=== PATIENT | male | born 1970 | race Caucasian/White ===

== ENCOUNTER 2016-08-24 09:56 | Emergency (ER) | payer OTHER ==
[2016-08-24 10:06] VITALS: BP 131/74; PULSE 88; TEMP 97.4; BMI 22.3
--- NOTE | 2016-08-24 10:27 | PDOC ---
History of Present Illness - General Chief Complaint: Ear Problem Stated Complaint: EAR AND MOUTH PAIN Time Seen by Provider: 08/24/16 10:08 History Source: Patient Exam Limitations: No Limitations - History of Present Illness Initial Comments: CHIEF COMPLAINT: 45 y/o afebrile male with no significant pMH c/o 5 days of sore throat and ear pain. HISTORY OF PRESENT ILLNESS: The patient states his symptoms started as a sore throat with painful swallowing. He states for the past 2 days he has had a right sided earache. He states the sore throat has improved. He denies f/c, n/ v/d, cough, runny nose, change in voice, headache, and all other symptoms. He hasn't taken any medication for his symptoms. Vital signs on arrival are within normal limits. REVIEW OF SYSTEMS: GENERAL/CONSTITUTIONAL: No fever/chills. No weakness. No weight change. HEAD, EYES, EARS, NOSE AND THROAT: No change in vision. +right earache. +sore throat. MUSCULOSKELETAL: No joint or muscle swelling or pain. No neck or back pain. SKIN: No rash or easy bruising. NEUROLOGIC: No headache, vertigo, loss of consciousness, or loss of sensation. PHYSICAL EXAM: GENERAL: The patient is awake, alert, and fully oriented, in no acute distress. He is very well appearing and ambulatory. HEENT: head with no signs of trauma. No mastoid TTP b/l. PERRLA. EOMs intact. No tonsilar erythema or edema. No tooth pain. No anterior lymphadenopathy. Pain elicited with otoscope exam of right ear with minimal swelling of canal and moderate amount of cerumen. TMs normal b/l. EXTREMITIES: Normal range of motion, no edema. NEUROLOGICAL: Normal speech, normal gait. PSYCH: Normal mood, normal affect. SKIN: Warm, Dry, normal turgor, no rashes or lesions noted. Past History - Past Medical History Allergies/Adverse Reactions: Allergies Allergy/AdvReac Type Severity Reaction Status Date / Time No Known Allergies Allergy Verified 08/24/16 09:58 Home Medications: Ambulatory Orders Neomycin/Polymyxin B Sulf/Hc [Npifdmek-Rmoorlfbu-Vm Ear Susp] 4 drop AD TID #1 bottle 08/24/16 Other medical history: none - Psycho/Social/Smoking Cessation Hx Anxiety: No Suicidal Ideation: No Smoking History: Never smoked Have you smoked in the past 12 months: No Information on smoking cessation initiated: No Hx Alcohol Use: No Drug/Substance Use Hx: No Substance Use Type: None *Physical Exam - Vital Signs Last Vital Signs Temp Pulse Resp BP Pulse Ox 97.4 F L 88 18 131/74 100 08/24/16 09:59 08/24/16 09:59 08/24/16 09:59 08/24/16 09:59 08/24/16 09:59 Medical Decision Making - Medical Decision Making A/P: 45 y/o afebrile male with sore throat and possible otitis externa. Plan is to discharge to home with instructions to take OTC Ibuprofen for pain every 6 hours and use Rx ear drops as prescribed. Instructed the patient to f/u with his doctor within 1 week and return to the ER with any worsening or concerning symptoms. The patient verbalizes understanding of all instructions, has no further questions and is awaiting discharge. *DC/Admit/Observation/Transfer Diagnosis at time of Disposition: Earache on right, Sore throat Otitis externa Qualifiers: Otitis externa type: unspecified type Laterality: right Chronicity: acute Qualified Code(s): H60.501 - Unspecified acute noninfective otitis externa, right ear - Discharge Dispostion Disposition: HOME Condition at time of disposition: Good - Prescriptions Prescriptions: Neomycin/Polymyxin B Sulf/Hc [Kykpzdsd-Kbqtcchta-Ha Ear Susp] 4 drop AD TID #1 bottle - Patient Instructions Printed Discharge Instructions: DI for Otitis Externa, Sore Throat Additional Instructions: Discharge Instructions: -Take 600mg of over the counter Ibuprofen with food for pain every 6 hours -Use ear drops as prescribed -Call your doctor and make an appointment for 1 week from today -Return to the ER immediately with any worsening or concerning symptoms
[2016-08-24] MEDS ORDERED: IBUPROFEN 600 MG TABLET (FP) PO ONE ×2 (10:29→10:32)
== END 2016-08-24 10:35 | disposition home or self-care (01) ==
LOC: JERFT 09:56
DX: H60.501 Unspecified acute noninfective otitis externa, right ear (principal)
CPT/HCPCS: 99281-25

== ENCOUNTER 2016-10-18 18:27 | Emergency (ER) | payer OTHER ==
[2016-10-18 18:31] VITALS: BP 124/68; PULSE 75; TEMP 98; BMI 20.9
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
[2016-10-18] MEDS ORDERED: IBUPROFEN 400 MG TABLET (FP) PO ONE ×2 (18:55→18:57)
== END 2016-10-18 19:04 | disposition home or self-care (01) ==
LOC: JERFT 18:27
DX: M54.2 Cervicalgia (principal); M54.6 Pain in thoracic spine; V49.49XA Driver injured in collision with other motor vehicles in traffic accident, initial encounter; Y92.488 Other paved roadways as the place of occurrence of the external cause; Y93.89 Activity, other specified
CPT/HCPCS: 99281-25

== ENCOUNTER 2018-12-25 11:52 | Emergency (ER) | payer OTHER ==
[2018-12-25] MEDS ORDERED: morphine CARPU-JECT 4 MG/1 ML DISP.SYRIN IVPUSH ONE (12:29)
[2018-12-25] MEDS ORDERED: ONDANSETRON 4 MG/2 ML VIAL IVPUSH ONE (12:29)
[2018-12-25] MEDS ORDERED: SODIUM CHLORIDE 1,000 ML IV STA (12:29)
--- NOTE | 2018-12-25 12:29 | PDOC ---
Rapid Medical Evaluation Time Seen by Provider: 12/25/18 12:25 Medical Evaluation: Allergies Allergy/AdvReac Type Severity Reaction Status Date / Time No Known Allergies Allergy Verified 10/18/16 18:31 12/25/18 12:26 I have performed a brief in-person evaluation of this patient. The patient presents with a chief complaint of: left sided abdominal pain x10 days. Pertinent physical exam findings: VSS. AF. LLQ tenderness with guarding. I have ordered the following: abdominal w/u The patient will proceed to the ED for further evaluation. Discharge Disposition - Diagnosis Left sided abdominal pain - Referrals - Patient Instructions - Post Discharge Activity
[2018-12-25 12:31] VITALS: BP 126/80; PULSE 77; TEMP 98.1; BMI 27.8
--- NOTE | 2018-12-25 13:44 | PDOC ---
History of Present Illness - General History Source: Patient - History of Present Illness Quality: reports: sharpness Abdominal Pain Onset Location: reports: LLQ Pain Radiation: reports: no radiation <Higinio Alonso - Last Filed: 12/25/18 18:56> <Noemy Reecedeaanjelica - Last Filed: 12/26/18 16:32> - General Chief Complaint: Pain Stated Complaint: ABD PAIN Time Seen by Provider: 12/25/18 12:25 Past History - Suicide/Smoking/Psychosocial Hx Smoking History: Never smoked Have you smoked in the past 12 months: No Hx Alcohol Use: No Drug/Substance Use Hx: No Substance Use Type: None <Higinio Alonso - Last Filed: 12/25/18 18:56> <Noemy Reece Cristobal - Last Filed: 12/26/18 16:32> - Past Medical History Allergies/Adverse Reactions: Allergies Allergy/AdvReac Type Severity Reaction Status Date / Time No Known Allergies Allergy Verified 10/18/16 18:31 Home Medications: Ambulatory Orders Ciprofloxacin [Cipro -] 500 mg PO Q12H #14 tablet 12/25/18 Metronidazole 500 mg PO Q8H #21 tablet 12/25/18 Tramadol HCl 50 mg PO Q8H #15 tablet MDD 200mg 12/25/18 Review of Systems - Review of Systems Constitutional: No: Chills, Fever ABD/GI: No: Blood Streaked Bowels, Constipated, Diarrhea, Nausea, Rectal Bleeding, Vomiting, Tarry Stools : No: Burning, Dysuria, Flank Pain, Hematuria, Testicular Mass, Testicular Swelling, Testicular Pain <Higinio Alonso - Last Filed: 12/25/18 18:56> *Physical Exam - Vital Signs Last Vital Signs Temp Pulse Resp BP Pulse Ox 98.1 F 77 20 126/80 12/25/18 12:29 12/25/18 12:29 12/25/18 12:29 12/25/18 12:29 - Physical Exam General Appearance: Yes: Appropriately Dressed. No: Apparent Distress HEENT: positive: Normal Voice Neck: positive: Supple Respiratory/Chest: negative: Respiratory Distress Gastrointestinal/Abdominal: positive: Normal Bowel Sounds, Tender (sig ttp to LLQ), Soft. negative: Distended, Guarding, Rebound Musculoskeletal: negative: CVA Tenderness Integumentary: positive: Dry, Warm Neurologic: positive: Fully Oriented, Alert, Normal Mood/Affect <Higinio Alonso - Last Filed: 12/25/18 18:56> - Vital Signs Last Vital Signs Temp Pulse Resp BP Pulse Ox 98.1 F 77 20 126/80 12/25/18 12:29 12/25/18 12:29 12/25/18 12:29 12/25/18 12:29 <Noemy Reece - Last Filed: 12/26/18 16:32> ED Treatment Course - LABORATORY CBC & Chemistry Diagram: 12/25/18 14:45 12/25/18 14:45 <Higinio Alonso - Last Filed: 12/25/18 18:56> - LABORATORY CBC & Chemistry Diagram: 12/25/18 14:45 12/25/18 14:45 <Noemy Reece - Last Filed: 12/26/18 16:32> Medical Decision Making - Medical Decision Making 12/25/18 13:41 48 yo M, h/o renal stone (last time in the 90s), p/w persistent, constant LLQ pain x 10 days, hurts more w/ palpation per pt. No changes in BM, BRBPR, n/v/f/c , dysuria/hematuria. See exam R/o diverticulitis, less likely renal colic -pain control -labs -CT 12/25/18 19:[address] with acute uncomplicated diverticulitis. On reassessment , patient states pain has resolved. No nausea, vomiting and remained afebrile here. Pt offered admission vs trial of out-patient antibiotics. Patient reports going home at this time with meds. Strict return precautions given to pt. Otherwise, PMD follow-up this week <Higinio Alonso - Last Filed: 12/25/18 18:56> - Medical Decision Making The patient was seen and evaluated in conjunction with midlevel provider under my direct supervision, ancillary studies were reviewed. I agree with the plan as outlined HERSON Alonso. HPI, workup/dispo as outlined. VS reviewed, wnl. CT with uncomplicated diverticulitis PO meds, cipro/flagyl trial, outpatient f/u and return precautions provided. 12/25/18 13:50 12/26/18 16:32 <Noemy Reece - Last Filed: 12/26/18 16:32> *DC/Admit/Observation/Transfer <Higinio Alonso - Last Filed: 12/25/18 18:56> <Noemy Reece - Last Filed: 12/26/18 16:32> Diagnosis at time of Disposition: Left sided abdominal pain - Discharge Dispostion Disposition: HOME Condition at time of disposition: Improved - Prescriptions Prescriptions: Ciprofloxacin [Cipro -] 500 mg PO Q12H #14 tablet Metronidazole 500 mg PO Q8H #21 tablet Tramadol HCl 50 mg PO Q8H #15 tablet MDD 200mg - Referrals Referrals: Micheal Wing [Primary Care Provider] - - Patient Instructions Printed Discharge Instructions: Diverticulitis Additional Instructions: You have a condition called diverticulitis, which is a localized infection of your colon on the left side. There is no complication at this time such as an abscess or perforation. Given that you had no fever or vomiting, you were sent home with a trial of antibiotic by mouth. If symptoms persist and/or worsen as discussed today in the ER, please return immediately - Post Discharge Activity
[2018-12-25] MEDS ORDERED: KETOROLAC TROMETHAMINE 30 MG/1 ML VIAL IVPUSH ONE (13:45)
[2018-12-25] MEDS ORDERED: morphine SULFATE 4 MG/ML VIAL ONE (14:37)
[2018-12-25] MEDS ORDERED: ONDANSETRON 4 MG/2 ML VIAL ONE ×2 (14:38→14:39)
[2018-12-25] MEDS ORDERED: KETOROLAC TROMETHAMINE 30 MG/1 ML VIAL ONE (14:38)
[2018-12-25 15:07] LABS: BASO % 0.5 % (0-2.0); EOS % 4.3 % (0-4.5); HEMATOCRIT 44.8 % (35.4-49); HEMOGLOBIN 14.8 GM/dL (11.7-16.9); LYMPH % 31.9 % (8-40); MCH 30.1 pg (25.7-33.7); MEAN CELL VOLUME 91.1 fl (80-96); MEAN PLT VOLUME 9.4 fl (7.5-11.1); MONO % 8.7 % (3.8-10.2); NEUT % 54.6 % (42.8-82.8); PLATELET COUNT 234 K/MM3 (134-434); RBC 4.92 M/mm3 (4.00-5.60); RDW 12.4 % (11.9-15.9); WHITE BLOOD COUNT 6.6 K/mm3 (4.0-10.0)
[2018-12-25 15:28] LABS: ALBUMIN 4.2 g/dl (3.4-5.0); BILIRUBIN,TOTAL 0.5 mg/dL (0.2-1); BLOOD UREA NITROGEN 9.3 mg/dL (7-18); CALCIUM 9.6 mg/dL (8.5-10.1); POTASSIUM 4.4 mmol/L (3.5-5.1); TOT PROT 8.1 g/dl (6.4-8.2)
== END 2018-12-25 19:06 | disposition home or self-care (01) ==
LOC: JER 11:52
PROC: 3E0333Z Introduction of Anti-inflammatory into Peripheral Vein, Percutaneous Approach (ICD-10-PCS; principal; 2018-12-25)
PROC: 3E033GC Introduction of Other Therapeutic Substance into Peripheral Vein, Percutaneous Approach (ICD-10-PCS; 2018-12-25)
DX: K57.92 Diverticulitis of intestine, part unspecified, without perforation or abscess without bleeding (principal); Z87.442 Personal history of urinary calculi
CPT/HCPCS: 36415; 74177-TC; 80053; 83690; 85025; 96374; 96375; 99281-25; C1887; J7030

== ENCOUNTER 2019-02-03 10:32 | Emergency (ER) | payer OTHER ==
[2019-02-03 10:44] VITALS: TEMP 98.2; BMI 25.1
--- NOTE | 2019-02-03 10:50 | PDOC ---
History of Present Illness - General Chief Complaint: Weakness Stated Complaint: WEAKNESS Time Seen by Provider: 02/03/19 10:49 - History of Present Illness Initial Comments: 02/03/19 11:47 48M w/ pmh of diverticulitis(dx in December 2018) presents w/ complaint unremitting fatigue w/a CAGE x2d. States that two days prior, had sudden onset of fatigue while he was sitting in his car waiting for a car wash then he gradually developed a post-auricular headache, peak of 7/10 severity. 3d prior, had burning upper chest sensation lasting 1.5hs while sitting. He usually tries a nap to resolve fatigue. Overnight sleep did not help with the fatigue. He did not try any medications for the CAGE but it reduced to 2/10 on its own. Presented to the ED out of concern that this fatigue and CAGE did not resolve. Denies weakness, trouble with gait. Not taking ACs, no hematochezia/melena. Has intermittent mild crampy LLQ pain, worse with eating meals. Sister is sick w/ cold. Denies strange new foods. Denies new medications. Went to a large park 2 weeks prior. Denies new insect bites. Engages in nonbarrier monogamous intercourse with . 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 Timing/Duration: 24 hours Associated Symptoms: reports: headaches, malaise. denies: chest pain, cough, diaphoresis, fever/chills, loss of appetite, syncope, weakness Aspirin Received prior to arrival: No: no aspirin today Beta Eldon Contraindications(Core Measure): No: Not Prescribed Past History - Travel Traveled outside of the country in the last 30 days: No Close contact w/someone who was outside of country & ill: No - Past Medical History Allergies/Adverse Reactions: Allergies Allergy/AdvReac Type Severity Reaction Status Date / Time No Known Allergies Allergy Verified 02/03/19 10:44 Home Medications: Ambulatory Orders NK [No Known Home Medication] 02/03/19 Anemia: No Asthma: No Cancer: No Cardiac Disorders: No CVA: No COPD: No Diabetes: No - Surgical History Comments:: 02/03/19 12:00 R shoulder arthroscopic surgery - Family Disease History Family Disease History: Heart Disease: Father (CAD s/p CABG), Mother - Suicide/Smoking/Psychosocial Hx Smoking Status: No Smoking History: Never smoked Years of Tobacco Use: 0 Have you smoked in the past 12 months: No Hx Alcohol Use: No Drug/Substance Use Hx: No Substance Use Type: None Review of Systems - Review of Systems Able to Perform ROS?: Yes Is the patient limited Khmer proficient: No Constitutional: Yes: Malaise. No: Chills, Fever HEENTM: No: Blurred Vision, Double Vision, Difficulty Swallowing Respiratory: No: Cough, Orthopnea, Wheezing, Productive cough Cardiac (ROS): Yes: Other (upper chest burning sensation). No: Irregular Heart Rate, Palpitations, Syncope ABD/GI: No: Abdominal Distended, Constipated, Diarrhea, Nausea, Vomiting : No: Burning, Dysuria, Hematuria Musculoskeletal: No: Back Pain, Joint Swelling, Muscle Pain, Muscle Weakness Integumentary: No: Erythema, Lesions, Rash Neurological: No: Seizure, Weakness, Dizziness Hematologic/Lymphatic: No: Anemia *Physical Exam - Vital Signs Last Vital Signs Temp Pulse Resp BP Pulse Ox 98.2 F 61 18 106/71 100 02/03/19 10:42 02/03/19 10:42 02/03/19 10:42 02/03/19 10:42 02/03/19 10:42 - Physical Exam General Appearance: Yes: Nourished. No: Apparent Distress, Disheveled HEENT: positive: EOMI, SHIRA. negative: Pale Conjunctivae, Photophobia, Nasal Congestion Neck: positive: Trachea midline, Normal Thyroid. negative: Tender, Lymphadenopathy (R), Lymphadenopathy (L) Respiratory/Chest: positive: Lungs Clear, Normal Breath Sounds. negative: Respiratory Distress, Labored Respiration, Crackles, Rales, Wheezing Cardiovascular: positive: Regular Rhythm, Regular Rate, S1, S2 Vascular Pulses: Dorsalis-Pedis (R): 2+, Doralis-Pedis (L): 2+ Gastrointestinal/Abdominal: positive: Soft. negative: Distended, Guarding, Tenderness Extremity: negative: Normal Range of Motion, Coldness, Cyanosis, Calf Tenderness , Erythema Integumentary: positive: Dry, Warm. 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 negative: Confused, Disoriented ED Treatment Course - LABORATORY CBC & Chemistry Diagram: 02/03/19 12:00 02/03/19 12:00 Medical Decision Making - Medical Decision Making 02/03/19 13:33 - reviewed CBC, CMP, TSH, UA, ekg -- normal - as per lab, HIV oraquick testing reagent was out of stock. Test was sent out - lyme test is a send out - CAGE is now 07/13, endorses continued fullness in the head - discussed lab results with patient, explaining that there are no acute lab abnormalities - patient amenable to discharge w/ fu with PCP next week *DC/Admit/Observation/Transfer Diagnosis at time of Disposition: Fatigue Qualifiers: Fatigue type: unspecified Qualified Code(s): R53.83 - Other fatigue Headache Qualifiers: Headache type: unspecified Headache chronicity pattern: acute headache Intractability: not intractable Qualified Code(s): R51 - Headache - Discharge Dispostion Disposition: HOME Condition at time of disposition: Stable Decision to Admit order: No - Referrals Referrals: Micheal Wing [Primary Care Provider] - - Patient Instructions Printed Discharge Instructions: DI for Fatigue Additional Instructions: You presented with complaint of fatigue and headache. The labwork(CBC, CMP, UA, troponin) and chest xray do not show any obvious reason for your fatigue. Your headache improved mildly after administration of acetaminophen. Please follow- up with your PCP next to discuss this ER visit. Please return to the ER if you experience: - severe, unresolving headache - severe, unresolving dizziness - severe, unresolving nausea with vomiting - severe chest pain - Post Discharge Activity
--- NOTE | 2019-02-03 10:57 | PDOC ---
Attending Attestation - Resident Resident Name: Devin León - HPI HPI: 02/03/19 11:42 48 y/o male here in ED c/o headache, dizziness and severe fatigue, that began yesterday while sitting in his car waiting on it t be washed. Pt did not take any meds for these complaints, went home and slept but today stills feels weak and a little dizzy so he came in for evaluation. Pt is non toxic appearing and not in acute distress at present. Pt says he came in to ED today because of the fatigue and still not feeling like himself. - Physicial Exam PE: 02/03/19 11:46 HEENT: NCAT, VIVIENNE, EOMI,TM normal bilaterally Neck: supple S1S2 regular Abd: + bs abd soft no guarding or tenderness Ext: no edema Neuro: Alert and oriented x3, SOLANO's no focal deficits, nl gait, neg pronator drift, neg rhomberg, nl finger to nose, cn 2-12 grossly intact, Pt able to walk on his heels - Medical Decision Making 02/03/19 11:50 48 y/o male in ED c/o malaise, fatigue, dizziness of one day duration, no meds taken for above complaints, history positive for diverticulitis a few months ago. DD: dehydration, lyme disease or other tick borne serology, vertigo, unlikely acute intracranial bleed do normal neuro exam, non focal deficits and mild 2-3 headache , as is ACS. Plan: cbc, cmp, lyme screen, ekg, trop, HIV, will give tylenol , fluid and reevaluate
[2019-02-03 11:37] VITALS: BP 122/80; PULSE 62
[2019-02-03] MEDS ORDERED: ACETAMINOPHEN 325 MG TABLET (FP) PO ONE (11:39)
[2019-02-03] MEDS ORDERED: SODIUM CHLORIDE 0.9% 500 ML INFUS.BAG IV ONE (11:39)
[2019-02-03] MEDS ORDERED: ACETAMINOPHEN 325 MG TABLET (FP) ONE (11:43)
[2019-02-03 12:13] LABS: BASO % 0.7 % (0-2.0); EOS % 2.8 % (0-4.5); HEMATOCRIT 44.4 % (35.4-49); HEMOGLOBIN 14.7 GM/dL (11.7-16.9); LYMPH % 34.2 % (8-40); MCH 30.1 pg (25.7-33.7); MCHC 33.1 g/dl (32.0-35.9); MEAN CELL VOLUME 90.9 fl (80-96); MEAN PLT VOLUME 9.5 fl (7.5-11.1); MONO % 7.9 % (3.8-10.2); NEUT % 54.4 % (42.8-82.8); PLATELET COUNT 223 K/MM3 (134-434); RBC 4.88 M/mm3 (4.00-5.60); RDW 12.7 % (11.9-15.9); WHITE BLOOD COUNT 7.5 K/mm3 (4.0-10.0)
[2019-02-03 12:53] LABS: ALBUMIN 4.2 g/dl (3.4-5.0); BILIRUBIN,TOTAL 0.8 mg/dL (0.2-1); BLOOD UREA NITROGEN 9.6 mg/dL (7-18); CALCIUM 9.7 mg/dL (8.5-10.1); POTASSIUM 4.3 mmol/L (3.5-5.1)
[2019-02-03 13:09] LABS: PH,URINE 7.5 (5.0-8.0); URINE APPEARANCE CLEAR; URINE BILIRUBIN NEGATIVE (NEGATIVE); URINE COLOR YELLOW; URINE GLUCOSE (UA) NEGATIVE (NEGATIVE); URINE KETONE NEGATIVE (NEGATIVE); URINE LEUK ESTERASE NEGATIVE (NEGATIVE); URINE NITRITE NEGATIVE (NEGATIVE); URINE PROTEIN NEGATIVE (NEGATIVE); URINE UROBILINOGEN 0.2 mg/dL (0.2-1.0)
--- NOTE | 2019-02-04 09:04 | EKG ---
Test Reason : Blood Pressure : / mmHG Vent. Rate : 074 BPM Atrial Rate : 074 BPM P-R Int : 130 ms QRS Dur : 082 ms QT Int : 338 ms P-R-T Axes : 059 050 061 degrees QTc Int : 375 ms NORMAL SINUS RHYTHM EARLY REPOLARIZATION NORMAL ECG NO PREVIOUS ECGS AVAILABLE Confirmed by VIDAL ESPINOSA MD ([id number]) on 02/04/2019 9:04:20 AM Referred By: Confirmed By:VIDAL ESPINOSA MD
== END 2019-02-03 13:55 | disposition home or self-care (01) ==
LOC: JER 10:32
PROC: 3E0337Z Introduction of Electrolytic and Water Balance Substance into Peripheral Vein, Percutaneous Approach (ICD-10-PCS; principal; 2019-02-03)
DX: R53.83 Other fatigue (principal); R51 Headache
CPT/HCPCS: 36415; 71045-TC-FY; 80053; 81003; 82550; 84443; 84484; 85025; 86618; 87389; 93005; 93010; 99284-25

== ENCOUNTER 2019-05-08 05:10 | Emergency (ER) | payer OTHER ==
--- NOTE | 2019-05-08 05:16 | PDOC ---
History of Present Illness - General Chief Complaint: Pain, Acute Stated Complaint: LLQ PAIN RADIATING INTO LEFT FLANK Time Seen by Provider: 05/08/19 05:14 - History of Present Illness Initial Comments: 05/08/19 05:39 This 48-year-old man with a history of diverticulitis/renal stones/left adrenal nodule presents with left lower quadrant abdominal pain as well as left flank pain. Patient was seen at [facility] 12/25/2018 with left lower quadrant abdominal pain and uncomplicated diverticulitis was diagnosed with CT of abdomen /pelvis (1 cm left adrenal mass also seen on scan). The patient was treated with oral antibiotics (Cipro/metronidazole) with resolution of symptoms. He saw his general doctor a few months after a diverticulitis episode without further work-up at that time. Over the next few months, the patient redeveloped intermittent discomfort in the left lower quadrant, generally in the morning prior to bowel movement. He also noted an increase in severity of left flank/left CVA pain that he had in December but was it much milder at that time. In the last several days, abdominal pain is becoming more common and more severe. he had one episode of a small amount of bright red blood passed with stool a few days ago; this has not recurred. He denies nausea/vomiting/fever/chills. He ate dinner at about 6 PM last night; most recent BM was just prior to presentation and this was normal. The only associated symptom the patient notes is several weeks of progressive fatigue. Patient states that he has been following a vegan diet for many years No known allergies No daily medications Non-smoker; denies alcohol or other recreational drug use Past History - Past Medical History Allergies/Adverse Reactions: Allergies Allergy/AdvReac Type Severity Reaction Status Date / Time No Known Allergies Allergy Verified 05/08/19 05:14 Home Medications: Ambulatory Orders NK [No Known Home Medication] 02/03/19 Anemia: No Asthma: No Cancer: No Cardiac Disorders: No CVA: No COPD: No Diabetes: No - Psycho Social/Smoking Cessation Hx Smoking Status: No Smoking History: Never smoked Years of Tobacco Use: 0 Have you smoked in the past 12 months: No Hx Alcohol Use: No Drug/Substance Use Hx: No Substance Use Type: None Review of Systems - Review of Systems Able to Perform ROS?: Yes Comments:: 12 point review of systems is negative except for what is noted in the history of present illness *Physical Exam - Physical Exam Comments: GENERAL: Adult male, alert and oriented x3, no acute distress HEAD: Normal with no signs of trauma. EYES: PERRLA, EOMI, sclera anicteric, conjunctiva clear. ENT: Ears normal, nares patent, oropharynx clear without exudates. Moist mucous membranes. NECK: Normal range of motion, supple without lymphadenopathy, JVD, or masses. LUNGS: Breath sounds equal, clear to auscultation bilaterally. No wheezes, and no crackles. HEART:Regular rate and rhythm, normal S1 and S2 without murmur, rub or gallop. ABDOMEN:.normal bowel sounds; soft, mildly distended, marked left lower quadrant tenderness with associated fullness Moderate left CVA tenderness EXTREMITIES: Normal range of motion, no edema. No clubbing or cyanosis. No erythema, or tenderness. NEUROLOGICAL: Cranial nerves II through XII grossly intact. Normal speech. No focal neurological deficits . ED Treatment Course - LABORATORY CBC & Chemistry Diagram: 05/08/19 05:45 05/08/19 05:45 Medical Decision Making - Medical Decision Making This 48-year-old man with a history of diverticulitis (uncomplicated) episode in December of this year presents with several weeks of gradually progressive intermittent discomfort in the left lower quadrant of his abdomen and left flank /CVA area. In the last several days, the pain has become more frequent and more severe. No significant associated symptoms. CBC and chemistry profile as well as urinalysis sent and IV hydration begun. Toradol 30mg IV given for pain relief Likely the patient has a recurrence of his diverticulitis; the progressive discomfort that he has felt in his left CVA/left flank area may be related directly to the diverticulitis but also may be renal colic (patient has history of kidney stones in the ) or, less likely related to his left adrenal nodule. Abdominal/pelvic CT planned. 05/08/19 07:17 Case signed out to Dr. Cline at end of shift. Discharge - Discharge Information Condition: Stable - Follow up/Referral - Patient Discharge Instructions - Post Discharge Activity
[2019-05-08 05:19] VITALS: TEMP 97.8; BMI 24.8
[2019-05-08] MEDS ORDERED: KETOROLAC TROMETHAMINE 30 MG/1 ML VIAL ONE (06:04)
[2019-05-08] MEDS ORDERED: KETOROLAC TROMETHAMINE 30 MG/1 ML VIAL IVPUSH ONE (06:05)
[2019-05-08] MEDS ORDERED: SODIUM CHLORIDE 1,000 ML IV STA (06:05)
[2019-05-08 07:26] LABS: URINE APPEARANCE CLEAR; URINE BILIRUBIN NEGATIVE (NEGATIVE); URINE COLOR YELLOW; URINE GLUCOSE (UA) NEGATIVE (NEGATIVE); URINE KETONE NEGATIVE (NEGATIVE); URINE LEUK ESTERASE NEGATIVE (NEGATIVE); URINE NITRITE NEGATIVE (NEGATIVE); URINE PROTEIN NEGATIVE (NEGATIVE); URINE UROBILINOGEN 0.2 mg/dL (0.2-1.0)
[2019-05-08 08:26] LABS: ALBUMIN 3.9 g/dl (3.4-5.0); BILIRUBIN,TOTAL 0.8 mg/dL (0.2-1); BLOOD UREA NITROGEN 7.8 mg/dL (7-18); CALCIUM 9.2 mg/dL (8.5-10.1); TOT PROT 7.3 g/dl (6.4-8.2)
[2019-05-08 08:29] LABS: BASO % 0.4 % (0-2.0); EOS % 5.8 % (0-4.5); HEMATOCRIT 42.3 % (35.4-49); LYMPH % 34.4 % (8-40); MCHC 33.2 g/dl (32.0-35.9); MEAN CELL VOLUME 90.2 fl (80-96); MEAN PLT VOLUME 9.9 fl (7.5-11.1); MONO % 7.9 % (3.8-10.2); NEUT % 51.5 % (42.8-82.8); PLATELET COUNT 207 K/MM3 (134-434); RBC 4.69 M/mm3 (4.00-5.60); RDW 12.4 % (11.9-15.9); WHITE BLOOD COUNT 5.3 K/mm3 (4.0-10.0)
--- NOTE | 2019-05-08 09:40 | PDOC ---
*Physical Exam - Vital Signs Last Vital Signs Temp Pulse Resp BP Pulse Ox 97.8 F 76 16 119/79 97 05/08/19 05:15 05/08/19 05:15 05/08/19 05:15 05/08/19 05:15 05/08/19 05:15 ED Treatment Course - LABORATORY CBC & Chemistry Diagram: 05/08/19 05:45 05/08/19 05:45 - ADDITIONAL ORDERS Additional order review: Laboratory Results 05/08/19 05/08/19 05:45 05:45 Sodium 140 Potassium 4.0 Chloride 106 Carbon Dioxide 29 Anion Gap 4 L BUN 7.8 Creatinine 1.0 Est GFR (CKD-EPI)AfAm 102.69 Est GFR (CKD-EPI)NonAf 88.61 Random Glucose 89 Calcium 9.2 Total Bilirubin 0.8 AST 17 ALT 32 Alkaline Phosphatase 71 Total Protein 7.3 Albumin 3.9 Urine Color Yellow Urine Appearance Clear Urine pH 5.0 D Ur Specific [place] 1.020 Urine Protein Negative Urine Glucose (UA) Negative Urine Ketones Negative Urine Blood Negative Urine Nitrite Negative Urine Bilirubin Negative Urine Urobilinogen 0.2 Ur Leukocyte Esterase Negative 05/08/19 05:45 RBC 4.69 MCV 90.2 MCHC 33.2 RDW 12.4 MPV 9.9 Neutrophils % 51.5 Lymphocytes % 34.4 Monocytes % 7.9 Eosinophils % 5.8 H D Basophils % 0.4 - Medications Given in the ED: ED Medications Discontinued Medications Generic Name Dose Route Start Last Admin Trade Name Freq PRN Reason Stop Dose Admin Sodium Chloride 1,000 mls @ 1,000 mls/hr 05/08/19 06:05 05/08/19 06:09 Normal Saline - IV 05/08/19 07:04 1,000 mls/hr ASDIR STA Administration Ketorolac Tromethamine 30 mg 05/08/19 06:05 05/08/19 06:09 Toradol Injection - IVPUSH 05/08/19 06:06 30 mg ONCE ONE Administration Medical Decision Making - Medical Decision Making 05/08/19 09:49 Patient is labs were reviewed and CBC, chemistries, and urinalysis showed no significant abnormalities Abdominal and pelvic CT showed only epiploic appendagitis, which could conceivably be the cause of the patient's recurring pain. No other significant abnormalities were noted and there was no surgical disease present. The results were discussed with the patient, symptomatic treatment was reviewed , and referral to gold wheel blocker and polisher for follow-up was recommended. The patient was discharged fully ambulatory and no significant pain or other distress to follow-up as directed. Discharge - Discharge Information Problems reviewed: Yes Clinical Impression/Diagnosis: Epiploic appendagitis Condition: Stable Disposition: HOME - Admission No - Follow up/Referral Referrals: Yuniel Washington MD [Staff Physician] - - Patient Discharge Instructions Patient Printed Discharge Instructions: DI for Abdominal Pain-Adult - Post Discharge Activity Work/Back to School Note: Back to Work
[2019-05-08 10:08] VITALS: BP 124/90; PULSE 68
== END 2019-05-08 10:08 | disposition home or self-care (01) ==
LOC: FER 05:10
PROC: 3E0333Z Introduction of Anti-inflammatory into Peripheral Vein, Percutaneous Approach (ICD-10-PCS; principal; 2019-05-08)
PROC: 3E0337Z Introduction of Electrolytic and Water Balance Substance into Peripheral Vein, Percutaneous Approach (ICD-10-PCS; 2019-05-08)
DX: R10.32 Left lower quadrant pain (principal); K63.89 Other specified diseases of intestine; E27.9 Disorder of adrenal gland, unspecified; Z87.442 Personal history of urinary calculi
CPT/HCPCS: 36415; 74177-TC; 80053; 81003; 85025; 99282-25; J7030

== ENCOUNTER 2020-01-12 08:03 | Emergency (ER) | payer OTHER ==
[2020-01-12 08:13] VITALS: BMI 25.1
--- NOTE | 2020-01-12 08:15 | PDOC ---
History of Present Illness - General Chief Complaint: Pain Stated Complaint: ALLERGIC REACTION - History of Present Illness Initial Comments: 49 yo male with PMH of nephrolithiasis and diverticulitis presents with 1 day hx of flank pain. The pain is a 10/10 constant non-positional without radiation. He endorses nausea and nonbloody nonbilious vomiting. He denies CP, SOB, dysuria, hematuria, diarrhea, constipation. His last lithotripsy was 1 month ago to treat an 8mm stone. His last colonoscopy was 2 weeks ago where he was discharged with amoxicillin, metronidazole, and clarithromycin. Past History - Medical History Allergies/Adverse Reactions: Allergies Allergy/AdvReac Type Severity Reaction Status Date / Time No Known Allergies Allergy Verified 01/12/20 08:07 Home Medications: Ambulatory Orders NK [No Known Home Medication] 01/12/20 Anemia: No Asthma: No Cancer: No Cardiac Disorders: No CVA: No COPD: No CHF: No Dementia: No Diabetes: No GI Disorders: No Disorders: No HTN: No Hypercholesterolemia: No Kidney Stones: Yes Liver Disease: No Seizures: No Thyroid Disease: No - Surgical History Orthopedic Surgery: Yes (RIGHT SHOULDER SX) - Psycho-Social/Smoking History Smoking Status: No Smoking History: Never smoked Years of Tobacco Use: 0 Have you smoked in the past 12 months: No Information on smoking cessation initiated: No Review of Systems - Review of Systems Constitutional: No: Chills, Fever, Weakness HEENTM: No: Recent change in vision, Double Vision Respiratory: No: Cough, Orthopnea, Shortness of Breath Cardiac (ROS): No: Chest Pain, Edema, Irregular Heart Rate, Syncope ABD/GI: Yes: Nausea, Vomiting. No: Constipated, Diarrhea, Difficulty Swa llowing, Rectal Bleeding : Yes: Flank Pain, Pain. No: Burning, Dysuria, Discharge, Frequency, Hematuria, Incontinence Musculoskeletal: No: Joint Pain, Muscle Weakness Integumentary: No: Bruising, Erythema, Lesions Neurological: No: Numbness, Paresthesia, Tingling Psychiatric: No: Anxiety, Depression, Mood Swings Endocrine: No: Intolerance to Cold, Intolerance to Heat *Physical Exam - Vital Signs Last Vital Signs Temp Pulse Resp BP Pulse Ox 97.5 F L 82 16 119/76 100 01/12/20 08:07 01/12/20 08:07 01/12/20 08:07 01/12/20 08:07 01/12/20 08:07 - Physical Exam General Appearance: Yes: Nourished, Appropriately Dressed. No: Apparent Distress HEENT: positive: EOMI, Normal Voice Respiratory/Chest: positive: Lungs Clear, Normal Breath Sounds. negative: Chest Tender Cardiovascular: positive: Regular Rhythm, Regular Rate, S1, S2 Gastrointestinal/Abdominal: positive: Flat, Soft. negative: Tender, Hernia, Mass Integumentary: positive: Normal Color, Dry, Warm Neurologic: positive: Fully Oriented, Alert ED Treatment Course - LABORATORY CBC & Chemistry Diagram: 01/12/20 08:27 01/12/20 08:27 Medical Decision Making - Medical Decision Making 49 yo male with PMH of nephrolithiasis (s/p lithotripsy in 1 month ago) and diverticulitis (s/p colonoscopy 2 weeks ago) presents with right sided flank pain most likely due to nephrolithiasis. Patient has been given 1L fluids, Toradol, Morphine, Ativan, and Zofran. Renal US reveals right sided moderate hydronephrosis. CT Abdomen reveals a 3mm stone in the kidney (lower pole), a 3mm stone in the distal ureter calculus, and a 2mm stone in the bladder. His pain is much well controlled now and we predict the stone in the bladder was descending to cause the pain. He is being discharged to follow out outpatient with Dr. Jaylene Avelar for urology. Discharge - Discharge Information Problems reviewed: Yes Clinical Impression/Diagnosis: Nephrolithiasis, Hydronephrosis - Follow up/Referral Referrals: Nate Graves [Primary Care Provider] - David Posey MD [Staff Physician] - - Patient Discharge Instructions Patient Printed Discharge Instructions: DI for Kidney Stones Additional Instructions: Follow up with your urologist for further monitoring and potential intervention. Return to ED if symptoms worsen. - Post Discharge Activity
[2020-01-12] MEDS ORDERED: morphine CARPU-JECT 4 MG/1 ML DISP.SYRIN IVPUSH ONE (08:23)
[2020-01-12] MEDS ORDERED: KETOROLAC TROMETHAMINE 30 MG/1 ML VIAL IVPUSH ONE (08:24)
[2020-01-12] MEDS ORDERED: SODIUM CHLORIDE 1,000 ML IV STA (08:24)
[2020-01-12] MEDS ORDERED: KETOROLAC TROMETHAMINE 30 MG/1 ML VIAL ONE (08:26)
[2020-01-12 08:50] LABS: BASO % 0.6 % (0-2.0); EOS % 2.3 % (0-4.5); HEMOGLOBIN 15.1 GM/dL (11.7-16.9); LYMPH % 35.6 % (8-40); MCH 29.7 pg (25.7-33.7); MCHC 33.5 g/dl (32.0-35.9); MEAN CELL VOLUME 88.6 fl (80-96); MEAN PLT VOLUME 9.5 fl (7.5-11.1); MONO % 7.2 % (3.8-10.2); NEUT % 54.3 % (42.8-82.8); PLATELET COUNT 204 K/MM3 (134-434); RBC 5.07 M/mm3 (4.00-5.60); RDW 12.6 % (11.9-15.9); WHITE BLOOD COUNT 7.4 K/mm3 (4.0-10.0)
[2020-01-12] MEDS ORDERED: morphine CARPU-JECT 2 MG/1 ML DISP.SYRIN IVPUSH ONE (08:50)
[2020-01-12] MEDS ORDERED: MORPHINE SULFATE 2 MG/ML VIAL ONE (08:52)
[2020-01-12] MEDS ORDERED: LORazepam 2 MG/ML SDV VIAL ONE (09:02)
--- NOTE | 2020-01-12 09:13 | PDOC ---
Attending Attestation - Resident Resident Name: Elisha Cheney - ED Attending Attestation I have performed the following: I have examined & evaluated the patient, The case was reviewed & discussed with the resident, I agree w/resident's findings & plan, Exceptions are as noted - HPI HPI: 01/12/20 09:11 49 M with h/o kidney stones, diverticulitis, presenting with 1 day of R flank pain. Pt reports 10/10 pain radiating from R flank to RUQ. Denies F/C. Endorses N+V. Denies CP/SOB. Denies hematuria. Denies dysuria. States this feels like a kidney stone. Last kidney stone was 1 month ago, required lithotripsy. - Physicial Exam PE: 01/12/20 09:12 See resident exam - Medical Decision Making 01/12/20 09:12 49 M with R flank pain. Suspect renal colic. - Labs - UA, UCx - Pain control - Renal, RUQ US 01/12/20 12:[address] obtained, shows stone in bladder, likely passed Pt reassessed - pain now resolved Pt is well appearing, with normal vitals. Clinically stable for DC at this time. I discussed the physical exam findings, ancillary test results and final diagnoses with the patient. I answered all of the patient's questions. The patient was satisfied with the care received and felt comfortable with the discharge plan and treatment plan. The patient agrees to follow up with the primary care physician within 24-72 hours. Please note this patient was evaluated during the COVID-19 crisis with the presidential [place] Act Declaration and the [place] governwa executive order number 202. He/she was evaluated and clinical decisions were made relative to healthcare system resources as well as clinical picture during a pandemic crisis situation. Discharge - Discharge Information Problems reviewed: Yes Clinical Impression/Diagnosis: Nephrolithiasis, Hydronephrosis, Flank pain - Follow up/Referral Referrals: Nate Graves [Primary Care Provider] - David Posey MD [Staff Physician] - - Patient Discharge Instructions Patient Printed Discharge Instructions: DI for Kidney Stones Additional Instructions: Follow up with your urologist for further monitoring and potential intervention. Return to ED if symptoms worsen. - Post Discharge Activity
[2020-01-12 09:21] LABS: ALBUMIN 4.3 g/dl (3.4-5.0); ALK PHOS 76 U/L (45-117); ANION GAP 9 MMOL/L (8-16); BILIRUBIN,TOTAL 1.2 mg/dL (0.2-1); BLOOD UREA NITROGEN 14.6 mg/dL (7-18); CALCIUM 9.4 mg/dL (8.5-10.1); CHLORIDE 103 mmol/L (98-107); CO2 27 mmol/L (21-32); CREATININE 1.2 mg/dL (0.55-1.3); GLUCOSE,RANDOM 123 mg/dL (74-106); LIPASE 121 U/L (73-393); SGOT/AST 22 U/L (15-37); SGPT/ALT 33 U/L (13-61); SODIUM 139 mmol/L (136-145)
[2020-01-12] MEDS ORDERED: ONDANSETRON 4 MG/2 ML VIAL IVPUSH ONE (09:30)
--- NOTE | 2020-01-12 11:35 | EKG ---
Test Reason : Blood Pressure : / mmHG Vent. Rate : 106 BPM Atrial Rate : 107 BPM P-R Int : 162 ms QRS Dur : 080 ms QT Int : 348 ms P-R-T Axes : 083 058 056 degrees QTc Int : 462 ms SINUS TACHYCARDIA NONSPECIFIC ST ABNORMALITY ABNORMAL ECG WHEN COMPARED WITH ECG OF 03-FEB-2019 11:00, ST NO LONGER ELEVATED IN INFERIOR LEADS ST NOW DEPRESSED IN ANTERIOR LEADS QT HAS LENGTHENED Confirmed by DUNIA PISANO, ZELALEM ([id number]) on 01/12/2020 11:34:58 AM Referred By: Confirmed By:ZELALEM DUQUE MD
[2020-01-12 12:21] LABS: EPI CELLS 4 /uL (0-25.1); HYALINE CASTS 0 /uL (0-3.1); PH,URINE 8.5 (5.0-8.0); URINE APPEARANCE CLEAR; URINE BACTERIA 3 /uL (0-1359); URINE BILIRUBIN NEGATIVE (NEGATIVE); URINE COLOR YELLOW; URINE GLUCOSE (UA) NEGATIVE (NEGATIVE); URINE KETONE TRACE (NEGATIVE); URINE LEUK ESTERASE NEGATIVE (NEGATIVE); URINE NITRITE NEGATIVE (NEGATIVE); URINE PROTEIN NEGATIVE (NEGATIVE); URINE RBC 707 /uL (0-23.9); URINE UROBILINOGEN 0.2 mg/dL (0.2-1.0); URINE WBC 4 /uL (0-25.8)
[2020-01-12 12:23] VITALS: BP 120/76; PULSE 81; TEMP 97.8
== END 2020-01-12 12:45 | disposition home or self-care (01) ==
LOC: JER 08:03
PROC: 3E0337Z Introduction of Electrolytic and Water Balance Substance into Peripheral Vein, Percutaneous Approach (ICD-10-PCS; principal; 2020-01-12)
PROC: 3E033GC Introduction of Other Therapeutic Substance into Peripheral Vein, Percutaneous Approach (ICD-10-PCS; principal; 2020-01-12)
DX: N13.2 Hydronephrosis with renal and ureteral calculous obstruction (principal)
CPT/HCPCS: 36415; 71045-TC-FY; 74176-TC; 76700-TC; 80053; 81003; 82550; 83690; 84484; 85025; 87086; 93005; 93010; 99285-25

== ENCOUNTER 2020-01-12 23:31 | Emergency (ER) | payer OTHER ==
[~2020-01-12 23:31] MED LIST: LIDOCAINE PATCH REMOVAL MC SCH
[2020-01-12 23:47] VITALS: BP 132/70; PULSE 78; TEMP 98.1; BMI 25.1
[2020-01-12] MEDS ORDERED: LIDOCAINE 5% TOPICAL PATCH TP ONE (23:53)
--- NOTE | 2020-01-12 23:53 | PDOC ---
History of Present Illness - General Chief Complaint: Back Pain Stated Complaint: BACK PAIN Time Seen by Provider: 01/12/20 23:51 - History of Present Illness Initial Comments: HPI: 49yo M with PMH of nephrolithiasis and diverticulitis present presenting with R. sided flank pain. Patient was evaluated in this emergency department earlier today. Reports nausea and two episodes of nonbloody nonbilious vomiting. No urinary symptoms. Last bowel movement was earlier today and was a normal formed brown stool without blood. Had a lithotripsy about one month ago. [place] a stone pass today. Took tylenol at 11am for 04/12 pain, but it did not help, and so he decided to come back to the ED. No fevers or chills. ROS: Constitutional: no fever, no chills HEENT: no throat pain, no dysphagia Cardiovascular: no chest pain, no palpitations Respiratory: no cough, no shortness of breath Gastrointestinal: +nausea, +vomiting Genitourinary: no dysuria, +flank pain Musculoskeletal: no myalgia, no arthralgia Skin: no rash, no itching Neurologic: no headache, no weakness Psych: no agitation, no anxiety PE: General: Awake, alert, and fully oriented, in no acute distress Head: No signs of trauma Eyes: EOMI, sclera anicteric ENT: Moist mucus membranes Neck: Normal ROM, supple Lungs: Lungs clear, Normal breath sounds Cardio: Regular rhythm, S1 and S2 present Abdomen: Soft, nontender, +CVA tenderness on right, no CVA tenderness on left Extremities: Normal range of motion, Distal pulses present Skin: Warm, Dry, normal turgor Neurologic: Cranial nerves II through XII grossly intact. Normal speech ED Course/MDM: DDX including but not limited to nephrolithiasis, MSK, UTI/pyelo Per labs from today, patient with normal renal function and no infection Flank pain is likely due to his known nephrolithiasis Toradol, fluids, zofran 01/12/20 23:52 Patient feeling better, pain improved to /10 Asking to go home Motrin sent to pharmacy To follow up with urology Return precautions Stable for discharge 01/13/20 01:39 Past History - Medical History Allergies/Adverse Reactions: Allergies Allergy/AdvReac Type Severity Reaction Status Date / Time No Known Allergies Allergy Verified 01/12/20 23:44 Home Medications: Ambulatory Orders Ibuprofen [Motrin -] 600 mg PO Q6H PRN #60 tablet 01/13/20 Anemia: No Asthma: No Cancer: No Cardiac Disorders: No CVA: No COPD: No CHF: No Dementia: No Diabetes: No GI Disorders: No Disorders: No HTN: No Hypercholesterolemia: No Kidney Stones: Yes Liver Disease: No Seizures: No Thyroid Disease: No - Surgical History Orthopedic Surgery: Yes (RIGHT SHOULDER SX) - Psycho-Social/Smoking History Smoking Status: No Smoking History: Never smoked Years of Tobacco Use: 0 Have you smoked in the past 12 months: No Information on smoking cessation initiated: No - Substance Abuse Hx (Audit-C & DAST Scrn) How often the patient has a drink containing alcohol: Never Score: In Men: 4 or > Positive; In Women: 3 or > Positive: 0 Screen Result (Pos requires Nsg. Audit-10AR): Negative In the last yr the pt used illegal drug/Rx for NonMed reason: No Score: Yes response is considered Positive: 0 Screen Result (Positive result requires Nsg. DAST-10): Negative *Physical Exam - Vital Signs Last Vital Signs Temp Pulse Resp BP Pulse Ox 98.1 F 78 20 132/70 100 01/12/20 23:44 01/12/20 23:44 01/12/20 23:44 01/12/20 23:44 01/12/20 23:44 Discharge - Discharge Information Problems reviewed: Yes Clinical Impression/Diagnosis: Renal colic on right side Condition: Improved Disposition: HOME - Additional Discharge Information Prescriptions: Ibuprofen [Motrin -] 600 mg PO Q6H PRN #60 tablet PRN Reason: Pain - Follow up/Referral Referrals: David Posey MD [Staff Physician] - - Patient Discharge Instructions Patient Printed Discharge Instructions: DI for Flank Pain Additional Instructions: You came into the emergency department for back pain. You received toradol, zofran, and fluids while you were here. Make sure you drink plenty of water. Follow up with your urologist. Call and make an appointment tomorrow morning. Your workup is not complete until you do so. Strain your urine in order to catch the kidney stone. We sent a prescription to your pharmacy. This medication (ibuprofen, also called motrin) is also available over the counter. Take as instructed. Immediate medical attention is required if you develop: worsening pain, high fevers, persistent nausea, vomiting, or any new or concerning symptoms. If you think you are having an emergency, call for emergency medical services or present to the emergency department right away. - Post Discharge Activity
[2020-01-12] MEDS ORDERED: LIDOCAINE 5% TOPICAL PATCH ONE (23:56)
[2020-01-13] MEDS ORDERED: SODIUM CHLORIDE 1,000 ML IV STA (00:26)
[2020-01-13] MEDS ORDERED: KETOROLAC TROMETHAMINE 30 MG/1 ML VIAL IM ONE (00:26)
[2020-01-13] MEDS ORDERED: KETOROLAC TROMETHAMINE 30 MG/1 ML VIAL IVPUSH ONE (00:26)
[2020-01-13] MEDS ORDERED: KETOROLAC TROMETHAMINE 30 MG/1 ML VIAL ONE (00:36)
[2020-01-13] MEDS ORDERED: ONDANSETRON 4 MG/2 ML VIAL IVPUSH ONE (00:45)
--- NOTE | 2020-01-13 01:08 | PDOC ---
Documentation entered by Nicole Vargas SCRIBE, acting as scribe for Maribell Lorenzana MD. Maribell Lorenzana MD: This documentation has been prepared by the Sam boucher Xhesika, SCRIBE, under my direction and personally reviewed by me in its entirety. I confirm that the documentation accurately reflects all work, treatment, procedures, and medical decision making performed by me. Attending Attestation - Resident Resident Name: Lianne Bonilla - ED Attending Attestation I have performed the following: I have examined & evaluated the patient, The case was reviewed & discussed with the resident, I agree w/resident's findings & plan - HPI HPI: 01/13/20 00:24 The patient is a 49y/o M with a PMH of kidney stones, diverticulitis who presents to the ED with R flank pain. Pt states he was seen here this morning, had a CT scan that showed a kidney stone. Pt states he had a lithotripsy1 month ago, due to a 7mm stone. Allergies: NKDA - Physicial Exam PE: 01/13/20 01:17 GENERAL: Awake, alert, and fully oriented, in no acute distress HEAD: No signs of trauma EYES: PERRLA, EOMI, sclera anicteric, conjunctiva clear ENT: Auricles normal inspection, hearing grossly normal, nares patent, oropharynx clear without exudates. Moist mucosa NECK: Normal ROM, supple, no lymphadenopathy, JVD, or masses LUNGS: Breath sounds equal, clear to auscultation bilaterally. No wheezes, and no crackles HEART: Regular rate and rhythm, normal S1 and S2, no murmurs, rubs or gallops ABDOMEN: Soft, nontender, normoactive bowel sounds. No guarding, no rebound. No masses EXTREMITIES: Normal range of motion, no edema. No clubbing or cyanosis. No cords, erythema, or tenderness Right flank pain NEUROLOGICAL: Cranial nerves II through XII grossly intact. SKIN: Warm, Dry, normal turgor, no rashes lesions noted. 01/13/20 01:32 - Medical Decision Making 01/13/20 05:01 Vastly imprved; pt will follow with his pMD Discharge - Discharge Information Problems reviewed: Yes Clinical Impression/Diagnosis: Renal colic on right side Condition: Improved Disposition: HOME - Additional Discharge Information Prescriptions: Ibuprofen [Motrin -] 600 mg PO Q6H PRN #60 tablet PRN Reason: Pain - Follow up/Referral Referrals: David Posey MD [Staff Physician] - - Patient Discharge Instructions Patient Printed Discharge Instructions: DI for Flank Pain Additional Instructions: You came into the emergency department for back pain. You received toradol, zofran, and fluids while you were here. Make sure you drink plenty of water. Follow up with your urologist. Call and make an appointment tomorrow morning. Your workup is not complete until you do so. Strain your urine in order to catch the kidney stone. We sent a prescription to your pharmacy. This medication (ibuprofen, also called motrin) is also available over the counter. Take as instructed. Immediate medical attention is required if you develop: worsening pain, high fevers, persistent nausea, vomiting, or any new or concerning symptoms. If you think you are having an emergency, call for emergency medical services or present to the emergency department right away. - Post Discharge Activity
== END 2020-01-13 01:43 | disposition home or self-care (01) ==
LOC: JER 23:31
PROC: 3E0337Z Introduction of Electrolytic and Water Balance Substance into Peripheral Vein, Percutaneous Approach (ICD-10-PCS; principal; 2020-01-13)
PROC: 3E033GC Introduction of Other Therapeutic Substance into Peripheral Vein, Percutaneous Approach (ICD-10-PCS; principal; 2020-01-13)
DX: N23 Unspecified renal colic (principal)
CPT/HCPCS: 99284-25

== ENCOUNTER 2020-01-14 12:11 | Emergency (ER) | payer OTHER ==
[2020-01-14 12:21] VITALS: BMI 25.1
[2020-01-14] MEDS ORDERED: ACETAMINOPHEN 1000 MG/100 ML VIAL (NON FORMULARY) IVPB ONE (13:23)
[2020-01-14] MEDS ORDERED: ONDANSETRON 4 MG/2 ML VIAL IVPUSH ONE (13:23)
[2020-01-14] MEDS ORDERED: SODIUM CHLORIDE 1,000 ML IV STA (13:23)
--- NOTE | 2020-01-14 13:37 | PDOC ---
History of Present Illness - General Chief Complaint: Pain Stated Complaint: ABD PAIN Time Seen by Provider: 01/14/20 12:30 History Source: Patient Exam Limitations: No Limitations - History of Present Illness Travel History: No Initial Comments: 01/14/20 13:32 HISTORY OF PRESENT ILLNESS: 49-year-old male currently being treated for H. pylori and history of kidney stones presents emergency department for evaluation of periumbilical and right lower quadrant pain worsening this morning. Patient was seen and evaluated on 01/11 here was told he had multiple kidney stones which he believes he may be passing. He reports feeling mildly nauseous but has not vomited. Patient has been taking quad therapy for H pylori and also Motrin 800 mg with minimal relief of symptoms. Patient reports she has not had a bowel movement in 2 days. No recent travel or sick contacts. PAST MEDICAL HISTORY: See HPI SURGICAL HISTORY: Denies ALLERGIES: No known drug allergies REVIEW OF SYSTEMS General/Constitutional: Denies fever or chills. Denies weakness, weight change. HEENT: Denies change in vision. Denies ear pain or discharge. Denies sore throat. Cardiovascular: Denies chest pain or shortness of breath. Respiratory: Denies cough, wheezing, or hemoptysis. Gastrointestinal: See HPI Genitourinary: Denies dysuria, frequency, or change in urination. Musculoskeletal: Denies joint or muscle swelling or pain. Denies neck or back pain. Skin and breasts: Denies rash or easy bruising. Neurologic: Denies headache, vertigo, loss of consciousness, or loss of sens ation. Psychiatric: Denies depression or anxiety. Endocrine: Denies increased thirst. Denies abnormal weight change. Hematologic/Lymphatic: Denies anemia, easy bleeding, or history of blood clots. Allergic/Immunologic: Denies hives or skin allergy. Denies latex allergy. PHYSICAL EXAM General Appearance: Well-appearing, appropriately dressed. No apparent distress, no intoxication. Gastrointestinal/Abdominal: Normal bowel sounds. Abdomen soft, non-distended. Right lower quadrant and periumbilical tenderness with guarding. No rebound tenderness. Negative psoas, obturator and Rovsing signs. No organomegaly, pulsatile mass, guarding, hepatomegaly, splenomegaly. Lymphatic: No adenopathy, tenderness. Musculoskeletal/Extremities: Normal inspection. FROM of all extremities, normal capillary refill. Pelvis Stable. No CVA tenderness. No tenderness to extremities, pedal edema, swelling, erythema or deformity. Past History - Medical History Allergies/Adverse Reactions: Allergies Allergy/AdvReac Type Severity Reaction Status Date / Time No Known Allergies Allergy Verified 01/14/20 12:15 Home Medications: Ambulatory Orders Ibuprofen [Motrin -] 600 mg PO Q6H PRN #60 tablet 01/13/20 Anemia: No Asthma: No Cancer: No Cardiac Disorders: No CVA: No COPD: No CHF: No Dementia: No Diabetes: No GI Disorders: No Disorders: No HTN: No Hypercholesterolemia: No Kidney Stones: Yes Liver Disease: No Seizures: No Thyroid Disease: No - Surgical History Orthopedic Surgery: Yes (RIGHT SHOULDER SX) - Psycho-Social/Smoking History Smoking Status: No Smoking History: Never smoked Years of Tobacco Use: 0 Have you smoked in the past 12 months: No Information on smoking cessation initiated: No - Substance Abuse Hx (Audit-C & DAST Scrn) How often the patient has a drink containing alcohol: Never Score: In Men: 4 or > Positive; In Women: 3 or > Positive: 0 Screen Result (Pos requires Nsg. Audit-10AR): Negative In the last yr the pt used illegal drug/Rx for NonMed reason: No Score: Yes response is considered Positive: 0 Screen Result (Positive result requires Nsg. DAST-10): Negative *Physical Exam - Vital Signs Last Vital Signs Temp Pulse Resp BP Pulse Ox 97.8 F 75 17 118/82 99 01/14/20 12:15 01/14/20 12:15 01/14/20 12:15 01/14/20 12:15 01/14/20 12:15 ED Treatment Course - LABORATORY CBC & Chemistry Diagram: 01/14/20 13:28 01/14/20 13:28 Medical Decision Making - Medical Decision Making 01/14/20 13:35 A/P: 49-year-old male with periumbilical and right lower quadrant pain for 1 day Periumbilical and right lower quadrant tenderness present with guarding No rebound tenderness noted Negative psoas, obturator and Rovsing signs No CVA tenderness elicited No palpable masses present Review of chart reveals CT scan performed 01/11 with stones in right kidney, right ureter and bladder. Patient also with epiploic appendagitis at that time. Differential diagnosis includes but is not limited to-appendicitis, renal stone, UTI, musculoskeletal pain, obstruction, perforation Labs including lipase Urinalysis, urine culture CT of the abdomen and pelvis Patient has refused morphine as it gave him a "tingling sensation throughout his body the last time I received it." Tylenol 1 g IV push Zofran 4 mg IV push Reassess 01/14/20 19:34 CT scan is read by Dr. Patel: Previously visualized 2 tiny right renal stones are again seen. There is mild right renal hydronephrosis and mild to moderate right hydroureter without gross evidence of an obstructing stone. Previously visualized tiny stone in the right distal ureter and another stone layering in the urinary bladder no longer seen. Normal-appearing appendix without evidence of acute appendicitis. As patient does have a mild JHONNY likely due to a passed stone while waiting in the emergency department. Patient currently is asymptomatic given CAT scan findings I feel it is safe to discharge patient home to follow-up with urology as previously recommended. I discussed the physical exam findings, ancillary test results and final diagnoses with the patient. I answered all of the patient's questions. The patient was satisfied with the care received and felt comfortable with the discharge plan and treatment plan. The patient will call their primary care physician within 24 hours to arrange follow-up and will return to the Emergency Department with any new, persistent or worsening symptoms. Portions of this note have been documented using voice recognition software. As a result, errors may occur in the decorator lighting fixtures process. Effort has been made to correct all grammatical and decorator lighting fixtures error, but some may have been missed which may produce sporadic inaccurate decorator lighting fixtures or nonsensical phrases. Discharge - Discharge Information Problems reviewed: Yes Clinical Impression/Diagnosis: Hydronephrosis Qualifiers: Hydronephrosis type: other Qualified Code(s): N13.39 - Other hydronephrosis Condition: Fair Disposition: HOME - Admission No - Follow up/Referral Referrals: Micheal Wing [Primary Care Provider] - David Posey MD [Staff Physician] - - Patient Discharge Instructions Additional Instructions: 2-3 L of water daily. strain all urine See your urologist in 1-2 days Into the ER if fever, vomiting, uncontrolled pain or feeling sicker - Post Discharge Activity
[2020-01-14] MEDS ORDERED: ACETAMINOPHEN INJECTION 100 ML IVPB ONE (13:47)
[2020-01-14 13:52] LABS: BASO % 0.3 % (0-2.0); EOS % 0.4 % (0-4.5); HEMATOCRIT 44.1 % (35.4-49); HEMOGLOBIN 14.4 GM/dL (11.7-16.9); LYMPH % 16.9 % (8-40); MCH 28.7 pg (25.7-33.7); MCHC 32.5 g/dl (32.0-35.9); MEAN CELL VOLUME 88.1 fl (80-96); MEAN PLT VOLUME 9.6 fl (7.5-11.1); MONO % 8.5 % (3.8-10.2); NEUT % 73.9 % (42.8-82.8); PLATELET COUNT 203 K/MM3 (134-434); RBC 5.01 M/mm3 (4.00-5.60); RDW 12.7 % (11.9-15.9); WHITE BLOOD COUNT 12.5 K/mm3 (4.0-10.0)
[2020-01-14 14:05] LABS: EPI CELLS 6 /uL (0-25.1); HYALINE CASTS 2 /uL (0-3.1); PH,URINE 8.5 (5.0-8.0); URINE APPEARANCE CLEAR; URINE BACTERIA 13 /uL (0-1359); URINE BILIRUBIN NEGATIVE (NEGATIVE); URINE COLOR YELLOW; URINE GLUCOSE (UA) NEGATIVE (NEGATIVE); URINE KETONE NEGATIVE (NEGATIVE); URINE LEUK ESTERASE NEGATIVE (NEGATIVE); URINE NITRITE NEGATIVE (NEGATIVE); URINE PROTEIN NEGATIVE (NEGATIVE); URINE RBC 97 /uL (0-23.9); URINE UROBILINOGEN 0.2 mg/dL (0.2-1.0); URINE WBC 18 /uL (0-25.8)
[2020-01-14 14:28] LABS: ALBUMIN 4.2 g/dl (3.4-5.0); BILIRUBIN,TOTAL 1.2 mg/dL (0.2-1); BLOOD UREA NITROGEN 12.2 mg/dL (7-18); CALCIUM 9.7 mg/dL (8.5-10.1); CREATININE 1.8 mg/dL (0.55-1.3); POTASSIUM 4.3 mmol/L (3.5-5.1); TOT PROT 8.1 g/dl (6.4-8.2)
[2020-01-14 20:26] VITALS: BP 123/79; PULSE 65; TEMP 98
== END 2020-01-14 20:31 | disposition home or self-care (01) ==
LOC: JER 12:11
PROC: 3E033GC Introduction of Other Therapeutic Substance into Peripheral Vein, Percutaneous Approach (ICD-10-PCS; principal; 2020-01-14)
PROC: 3E0337Z Introduction of Electrolytic and Water Balance Substance into Peripheral Vein, Percutaneous Approach (ICD-10-PCS; 2020-01-14)
DX: N13.39 Other hydronephrosis (principal)
CPT/HCPCS: 36415; 74176-TC; 80053; 81003; 83690; 85025; 87086; 96361; 96374; 99285-25; J0131; Q9967

== ENCOUNTER 2020-01-19 04:01 | Emergency (ER) | payer OTHER ==
[2020-01-19 04:13] VITALS: BMI 25.1
[2020-01-19] MEDS ORDERED: MECLIZINE HCL 25 MG TABLET (FP) PO ONE (04:36)
[2020-01-19] MEDS ORDERED: MECLIZINE HCL 25 MG TABLET (FP) ONE (04:39)
--- NOTE | 2020-01-19 04:41 | PDOC ---
Attending Attestation - Resident Resident Name: Hardik England - ED Attending Attestation I have performed the following: I have examined & evaluated the patient, The case was reviewed & discussed with the resident, I agree w/resident's findings & plan - HPI HPI: 01/19/20 05:27 Pt comes with dizziness that is positional. He woke up this morning and he felt like the room was spinning and he couldn't walk to the bathroom by himself. Hefinally got to the bathroom washes his face and felt slightly better; when he lay in bed, the position change made the spinning worse. Pt has no neuo deficits - Physicial Exam PE: 01/19/20 05:28 Agree with resident exam 01/19/20 21:09 No nystagmus; normal finger to nose; normal gait normal neuro exam normal heart and lungs EKG NSR; pt has j-point elevation - Medical Decision Making 01/19/20 05:28 Pt received meclizine and he is already feeling better. 01/19/20 05:38 Pt will get an EKG 01/19/20 05:41 Pt is stable for d/c home; he understands that he needs to return for worsening symptoms, as we could get hear CT to r/o brain injury/cerebellar CVA; pt has a normal neuro exam at this time. Heart Score/ECG Review - ECG Intrepretation Rhythm: Regular Rhythm - Surprise Surprise: Normal - P and [place] Atrial Enlargement: Right Prominent R with upright T in V1 (true posterior MA): No Delta Wave(s) Present: No WPW: No - QRS Poor R Wave Progression: No Q Wave Present: No - ST and T Early Repolarization: No - ECG Impressions Normal ECG: Yes Bradycardia: No Torsades jose Pointes: No WPW: No Comment:: 01/19/20 06:20 J-POINT ELEVATION Discharge - Discharge Information Problems reviewed: Yes Clinical Impression/Diagnosis: Vertigo Condition: Stable Disposition: HOME - Additional Discharge Information Prescriptions: Meclizine HCl [Antivert -] 25 mg PO TID PRN #21 tablet PRN Reason: Vertigo - Follow up/Referral Referrals: Hardik Whitley MD [Staff Physician] - Dakota Mart MD [Staff Physician] - Micheal Wing [Primary Care Provider] - - Patient Discharge Instructions Patient Printed Discharge Instructions: DI for Vertigo Additional Instructions: We have sent medication to your pharmacy; please pick it up and take as prescribed for dizziness. Follow up with your primary care doctor in the next 5-7 days. Follow up with either Neurology or ENT in the next 5-7 days. We have referred you to a doctor in each speciality; you may call the numbers attached to schedule an appointment. Return to the Emergency Department if you experience new or worsening symptoms including but not limited to - loss of sensation - weakness - change in personality or behavior - anything that concerns you - Post Discharge Activity
--- NOTE | 2020-01-19 05:06 | PDOC ---
History of Present Illness - General Chief Complaint: Lightheaded Stated Complaint: DIZZINESS Time Seen by Provider: 01/19/20 04:28 History Source: Patient Exam Limitations: No Limitations - History of Present Illness Initial Comments: 01/19/20 05:07 49M w/o PMH here for evaluation of positional vertigo. Worse w/ laying down; improves w/ sitting. No changes to vision / hearing, no tinnitus. No numbness, tingling, weakness, slurred speech. No prior episodes. Denies muhammad/f/c, cp/palp/sob, n/v. NKDA. Denies etoh, tobacco, drugs. Past History - Medical History Allergies/Adverse Reactions: Allergies Allergy/AdvReac Type Severity Reaction Status Date / Time No Known Allergies Allergy Verified 01/19/20 04:08 Home Medications: Ambulatory Orders Meclizine HCl [Antivert -] 25 mg PO TID PRN #21 tablet 01/19/20 Anemia: No Asthma: No Cancer: No Cardiac Disorders: No CVA: No COPD: No CHF: No Dementia: No Diabetes: No GI Disorders: No Disorders: No HTN: No Hypercholesterolemia: No Kidney Stones: Yes Liver Disease: No Seizures: No Thyroid Disease: No - Surgical History Orthopedic Surgery: Yes (RIGHT SHOULDER SX) - Psycho-Social/Smoking History Smoking Status: No Smoking History: Never smoked Years of Tobacco Use: 0 Have you smoked in the past 12 months: No Information on smoking cessation initiated: No - Substance Abuse Hx (Audit-C & DAST Scrn) How often the patient has a drink containing alcohol: Never Score: In Men: 4 or > Positive; In Women: 3 or > Positive: 0 Screen Result (Pos requires Nsg. Audit-10AR): Negative In the last yr the pt used illegal drug/Rx for NonMed reason: No Score: Yes response is considered Positive: 0 Screen Result (Positive result requires Nsg. DAST-10): Negative Review of Systems - Review of Systems Able to Perform ROS?: Yes Comments:: 01/19/20 06:25 CONSTITUTIONAL: Denies F / C HEENT: + positional vertigo. Denies headache, changes in vision / hearing, tinnitus RESP: Denies SOB CARD: Denies chest pain, palpitations GI: Denies N / V / D, abdominal pain, bloody stool, inability to tolerate PO : Denies dysuria, hematuria, frequency NEURO: Denies numbness, tingling, weakness MSK: Denies back pain SKIN: Denies rashes *Physical Exam - Vital Signs Last Vital Signs Temp Pulse Resp BP Pulse Ox 98.0 F 65 20 127/80 100 01/19/20 04:08 01/19/20 04:08 01/19/20 04:08 01/19/20 04:08 01/19/20 04:08 - Physical Exam 01/19/20 06:25 GEN: Well appearing, NAD, comfortable. AAOx3. HEENT: NC/AT, CN II-XII intact, no nystagmus, EOMI, PERRL. No facial asymmetry. Moist mucous membranes. Normal voice. Supple neck w/ FROM. CV: S1/S2, RRR, no m/r/g LUNG: CTAB, no wheezes, crackles, rales, rhonchi. GI: Soft, ndnt, +BS, no guarding, no rebound. MSK: No obvious deformities of all extremities. SKIN: Warm, dry, no rashes appreciated. PSYCH: Normal mood and affect. NEURO: Moving all extremities well. 5/5 UE strength b/l. 5/5 LE strength b/l. Sensation symmetric and intact throughout. No ataxia on FTN or heel-serna. No pronator drift. Ambulates w/ normal gait. ED Treatment Course - Medications Given in the ED: ED Medications Discontinued Medications Generic Name Dose Route Start Last Admin Trade Name Freq PRN Reason Stop Dose Admin Meclizine HCl 50 mg 01/19/20 04:36 01/19/20 04:45 Antivert - PO 01/19/20 04:37 50 mg ONCE ONE Administration Medical Decision Making - Medical Decision Making 01/19/20 06:25 49M c/o positional vertigo. neuro intact. likely BPPV EKG 0545 HR 63, intervals / axis wnl, NSR, early repol sx improved w/ meclizine dc home w/ PCP, neuro / ENT f/u and return precautions Discharge - Discharge Information Problems reviewed: Yes Clinical Impression/Diagnosis: Vertigo Condition: Stable Disposition: HOME - Admission No - Additional Discharge Information Prescriptions: Meclizine HCl [Antivert -] 25 mg PO TID PRN #21 tablet PRN Reason: Vertigo - Follow up/Referral Referrals: Micheal Wing [Primary Care Provider] - Dakota Mart MD [Staff Physician] - Hardik Whitley MD [Staff Physician] - - Patient Discharge Instructions Patient Printed Discharge Instructions: DI for Vertigo Additional Instructions: We have sent medication to your pharmacy; please pick it up and take as prescribed for dizziness. Follow up with your primary care doctor in the next 5-7 days. Follow up with either Neurology or ENT in the next 5-7 days. We have referred you to a doctor in each speciality; you may call the numbers attached to schedule an appointment. Return to the Emergency Department if you experience new or worsening symptoms including but not limited to - loss of sensation - weakness - change in personality or behavior - anything that concerns you - Post Discharge Activity
[2020-01-19 05:47] VITALS: BP 128/82; PULSE 63; TEMP 98.1
--- NOTE | 2020-01-19 14:58 | EKG ---
Test Reason : Blood Pressure : / mmHG Vent. Rate : 063 BPM Atrial Rate : 063 BPM P-R Int : 170 ms QRS Dur : 086 ms QT Int : 372 ms P-R-T Axes : 062 034 043 degrees QTc Int : 380 ms NORMAL SINUS RHYTHM EARLY REPOLARIZATION NORMAL ECG WHEN COMPARED WITH ECG OF 12-JAN-2020 09:08, VENT. RATE HAS DECREASED BY 43 BPM EARLY REPOL PATTERN NOW PRESENT Confirmed by VIDAL ESPINOSA MD ([id number]) on 01/19/2020 2:58:22 PM Referred By: Confirmed By:VIDAL ESPINOSA MD
== END 2020-01-19 05:55 | disposition home or self-care (01) ==
LOC: JER 04:01
DX: R42 Dizziness and giddiness (principal)
CPT/HCPCS: 93005; 93010; 99284-25

== ENCOUNTER 2020-04-16 08:47 | Emergency (ER) | payer OTHER ==
[2020-04-16 08:57] VITALS: BP 125/85; PULSE 78; TEMP 98.7; BMI 23.0
--- OUTSIDE RECORDS SUMMARY | 2020-04-16 09:08 | XMS ---
:1970 Author Organization [facility] Care Team Providers Name Role Phone LEO PISANO, LAURYN Unavailable LEO PISANO, LAURYN Unavailable RICCI PISANO, RAYMOND Unavailable RICCI PISANO, RAYMOND Unavailable WANDY PISANO, PRIMO Unavailable WANDY PISANO, PRIMO Unavailable WANDY PISANO, PRIMO Unavailable WANDY PISANO, PRIMO Unavailable WANDY PISANO, PRIMO Unavailable WANDY PISANO, PRIMO Unavailable Suleman Figueroa MD Unavailable Unavailable America Figueroa MD Unavailable Unavailable America Figueroa MD Unavailable Unavailable America Figueroa MD Unavailable Unavailable Go, R MD Unavailable Unavailable Go, R MD Unavailable Unavailable Go, R MD Unavailable Unavailable Taffet, MD Unavailable Unavailable Go, R MD Unavailable Unavailable Go, R MD Unavailable Unavailable Go, R MD Unavailable Unavailable Go, R MD Unavailable Unavailable Go, R MD Unavailable Unavailable Go, R MD Unavailable Unavailable Go, R MD Unavailable Unavailable Aubree Unavailable Unavailable Aubree Unavailable Unavailable Aubree Unavailable Unavailable Aubree Unavailable Unavailable Aubree Unavailable Unavailable Aubree Unavailable Unavailable HAY Unavailable Re-disclosure Warning The records that you are about to access may contain information from federally- assisted alcohol or drug abuse programs. If such information is present, then the following federally mandated warning applies: This information has been disclosed to you from records protected by federal confidentiality rules (42 CFR part 2). The federal rules prohibit you from making any further disclosure of this information unless further disclosure is expressly permitted by the written consent of the person to whom it pertains or as otherwise permitted by 42 CFR part 2. A general authorization for the release of medical or other information is NOT sufficient for this purpose. The Federal rules restrict any use of the information to criminally investigate or prosecute any alcohol or drug abuse patient.The records that you are about to access may contain highly sensitive health information, the redisclosure of which is protected by Article 27-F of the [facility] Public Health law. If you continue you may haveaccess to information: Regarding HIV / AIDS; Provided by facilities licensed or operated by the [facility] Office of Mental Health; or Provided by the [facility] Office for People With Developmental Disabilities. If such information is present, then the following [facility] mandated warning applies: This information has been disclosed to you from confidential records which are protected by state law. State law prohibits you from making any further disclosure of this information without the specific written consent of the person to whom it pertains, or as otherwise permitted by law. Any unauthorized further disclosure in violation of state law may result in a fine or senior care sentence or both. A general authorization for the release of medical or other information is NOT sufficient authorization for further disclosure. Encounters Encounter Providers Location Date Indications Data Source(s ) Outpatient<td Attender: Zena Browning 12/18/19 [facility] (Zena ID="encounterTyp PRIMO Neighborhood 20 Diverticulosis Ve rnon eDescriptionID0" [facility] 11:30:00 Ne[facility] [place]hood >OFFICE AM EDT - [facility]) VISIT</td><td>FAIZA 12/18/19 JEAN Rosario MD</td><td>[facility] 11:59:00 Nam PM EDT [facility]</td><td>0 12/18/2019</td><t d><content ID="encounterDia gnosisID0-0">Col onic Diverticulosis</ content></td> Colonic Diverticulosis S Attender: MD Wil Alonso-AMB SURG 12/14/2019 10:30:30 AM [facility] [place] TaffetReferrer: MD De La Torre EDT - 12/20/2019 [facility] 02:20:00 PM EDT Patient discharged. Outpatient Attender: MD De La Torre 5T-LAB 12/12/2019 11:37:45 [facility] - [place] Browning TaffetReferrer: MD De La Torre AM EDT - 12/18/2019 [facility] 11:59:00 PM EDT Patient discharged. Outpatient<td Attender: [place] 12/11/2019 [place] ID="encounterTypeDescriptionID1">EKG</td><[facility] ([place] SABA MD</td><td>[facility] EDT - [facility]</td><td>12/11/2019</td><td></td> [facility] 01:01:31 PM Center) EDT Outpatient<td Attender: Zena Browning 12/11/2019 [place] ID="encounterTypeDescriptionID2">OFFICE [facility] 11:00 :00 AM o ([place] VISIT</td><td>PRIMO SABA MD</td><td>[facility] er EDT - l [facility] 12/11/2019 o Health Center</td><td>12/11/2019</td><td><content 12:0 8:28 PM n Center) ID="encounterDiagnosisID2-0">Colonic EDT i Diverticulosis</content></td> c D i v e r t i c u l o s i s C o l o n i c D i v e r t i c u l o s i s C o l o n i c D i v e r t i c u l o s i s Colonic Diverticulosis Colonic Diverticulosis Colonic Diverticulosis Outpatient<td Attender: Zena Browning 09/14/2019 [place] ID="encounterTypeDescriptionID3">EKG</td><[facility] ([place] WYNNE MD</td><td>[facility] EDT - [facility]</td><td>09/14/2019</td><td></td> [address] [place] [address] 11:59:00 PM Center) EDT Outpatient<td Attender: Zena Browning 09/14/2019 [place] ID="encounterTypeDescriptionID4">OFFICE [facility] 12:15 :00 PM (Zena Browning VISIT</td><td>[facility]</td><td>[place] AubreeRUST EDT - [facility] 09/14/2019 Healt h Center</td><td>09/14/2019</td><td></td> 02:50:2 8 PM Center) EDT Outpatient<td Attender: Zena Browning 09/13/2019 [place] ID="encounterTypeDescriptionID5">PATIENT [facility] 11:0 3:00 AM (Zena Browning ADVOCACY</td><td> [facility]</td><td>[facility] Health C enter EDT - [facility] 09/13/2019 Healt h Center</td><td>09/13/2019</td><td></td> 11:59:0 0 PM Center) EDT S Attender: 5T-GI SUITE 09/10/2019 [facility] - Zena HALEY 12:48:51 PM Nam [place] EDT Hospital Admission cancelled. Disregard status an d admitted date. Outpatient<td Attender: Zena Browning 08/30/2019 [place] ID="encounterTypeDescriptionID6">PATIENT LADY Jacobson 11:4 0:00 AM ([place] ADVOCACY</td><td>[facility] EST - Neighborhood [facility]</td><td>[place] [facility] 2019 Health Health 11:59:00 PM Center) Center</td><td>08/30/2019</td><td></td> EST Outpatient<td Attender: Zena Browning 06/15/2019 Vielka TATE ID="encounterTypeDescriptionID7">OFFICE LAURYN [facility] 09:00 :00 AM e ([place] VISIT</td><td>LAURYN BAILEY MD Health Center EST - r [facility] </td><td>[facility] 06/15/2019 [facility] 09:42:03 AM a Center) Center</td><td>06/15/2019</td><td><conten EST t t o ID="encounterDiagnosisID7-0">Dermatitis</ p content>, <content h ID="encounterDiagnosisID7-1">Dermatophyto y sis Nails</content></td> t o s i s N a i l s D e r m a t i t i s D e r m a t o p h y t o s i s N a i l s D e r m a t i t i s D e r m a t o p h y t o s i s N a i l s D e r m a t i t i s D e r m a t o p h y t o s i s N a i l s D e r m a t i t i s D e r m a t o p h y t o s i s N a i l s D e r m a t i t i s D e r m a t o p h y t o s i s N a i l s D e r m a t i t i s D e r m a t o p h y t o s i s N a i l s D e r m a t i t i s D e r m a t o p h y t o s i s N a i l s D e r m a t i t i s Dermatophytosis Nails Dermatitis Dermatophytosis Nails Dermatitis Dermatophytosis Nails Dermatitis Dermatophytosis Nails Dermatitis Dermatophytosis Nails Dermatitis Dermatophytosis Nails Dermatitis Dermatophytosis Nails Dermatitis Dermatophytosis Nails Dermatitis Outpatient<td Attender: Zena Browning 06/11/2019 [place] ID="encounterTypeDescriptionID8">PATIENT LADY Jacobson 01:0 2:00 PM (Zena Browning ADVOCACY</td><td>[facility] EST - Neighborhood [facility]</td><td>[facility] 2018 Health Health 11:59:00 PM Center) Center</td><td>06/11/2019</td><td></td> EST Outpatient<td Attender: Zena Browning 06/05/2019 A [place] ID="encounterTypeDescriptionID9">OFFICE PRIMO [facility] 11:30 :00 AM t (Zena Browning VISIT</td><td>[facility] EST - o [facility] </td><td>[facility] 06/05/2019 Health Health 01:45:07 PM i Center) Center</td><td>06/05/2019</td><td><conten EST c t ID="encounterDiagnosisID9-0">Colonic D Diverticulosis</content>, <content e ID="encounterDiagnosisID9-1">Paraumbilica r l Hernia</content>, <content m ID="encounterDiagnosisID9-2">Nephrolithia a sis Right</content>, <content t ID="encounterDiagnosisID9-3">Atopic i Dermatitis</content></td> t i s N e p h r o l i t h i a s i s R i g h t P a r a u m b i l i c a l H e r n i a C o l o n i c D i v e r t i c u l o s i s A t o p i c D e r m a t i t i s N e p h r o l i t h i a s i s R i g h t P a r a u m b i l i c a l H e r n i a C o l o n i c D i v e r t i c u l o s i s A t o p i c D e r m a t i t i s N e p h r o l i t h i a s i s R i g h t P a r a u m b i l i c a l H e r n i a C o l o n i c D i v e r t i c u l o s i s A t o p i c D e r m a t i t i s N e p h r o l i t h i a s i s R i g h t P a r a u m b i l i c a l H e r n i a C o l o n i c D i v e r t i c u l o s i s A t o p i c D e r m a t i t i s N e p h r o l i t h i a s i s R i g h t P a r a u m b i l i c a l H e r n i a C o l o n i c D i v e r t i c u l o s i s A t o p i c D e r m a t i t i s N e p h r o l i t h i a s i s R i g h t P a r a u m b i l i c a l H e r n i a C o l o n i c D i v e r t i c u l o s i s A t o p i c D e r m a t i t i s N e p h r o l i t h i a s i s R i g h t P a r a u m b i l i c a l H e r n i a C o l o n i c D i v e r t i c u l o s i s A t o p i c D e r m a t i t i s N e p h r o l i t h i a s i s R i g h t P a r a u m b i l i c a l H e r n i a C o l o n i c D i v e r t i c u l o s i s Atopic Dermatitis Nephrolithiasis Right Paraumbilical Hernia Colonic Diverticulosis Atopic Dermatitis Nephrolithiasis Right Paraumbilical Hernia Colonic Diverticulosis Atopic Dermatitis Nephrolithiasis Right Paraumbilical Hernia Colonic Diverticulosis Atopic Dermatitis Nephrolithiasis Right Paraumbilical Hernia Colonic Diverticulosis Atopic Dermatitis Nephrolithiasis Right Paraumbilical Hernia Colonic Diverticulosis Atopic Dermatitis Nephrolithiasis Right Paraumbilical Hernia Colonic Diverticulosis Atopic Dermatitis Nephrolithiasis Right Paraumbilical Hernia Colonic Diverticulosis Atopic Dermatitis Nephrolithiasis Right Paraumbilical Hernia Colonic Diverticulosis Outpatient<td Attender: Zena Browning 05/29/2019 [place] ID="[id number]">OFFICE [facility] 11:4 5:00 AM ([place] VISIT</td><td>[facility] EST - [facility] </td><td>[place] Jacobson MD 05/29/2019 Health Health 12:52:23 PM Center) Center</td><td>05/29/2019</td><td></td> EST Outpatient<td Attender: Zena Browning 05/24/2019 [place] ID="[id number]">PATIENT LADY Jacobson 11: 02:00 AM ([place] ADVOCACY</td><td>[facility] EST - [facility]</td><td>[place] [facility] 2018 [facility] Health 11:59:00 PM Center) Center</td><td>05/24/2019</td><td></td> EST Outpatient 05/21/2019 [facility] 10:27:00 AM Medical EST Center Outpatient Attender: H 05/21/2019 [facility]49[facility] : Suleman Figueroa MDReferrer : Suleman Figueroa MD OutpatientOFFICE/OUTPATIENT VISIT, EST Attender: General 05/21/20 19 TIGRE Figueroa MD Surgery 09:49:00 AM ([facility] 05/21/2019 Medical 09:49:00 AM Center) EST Outpatient 05/21/2019 [facility] 12:00:00 AM Medical EST Center 05/10/2019 [facility] 10:24:00 AM Medical EST Center 05/10/2019 [facility] 10:23:00 AM Medical EST Center Patient admitted. Outpatient<td Attender: Zena Browning 05/09/2019 [place] ID="[id number]">PATIENT LADY Jacobson 10: 26:00 AM ([place] ADVOCACY</td><td>LADY HAY</td><td>[facility] E ST - [facility] 05/09/2019 Health Center</td><td>05/09/2019</td><td></td> 11:59:0 0 PM Center) EST Outpatient<td Attender: [place] 04/24/2019 [place] ID="[id number]">PATIENT LADY Jacobson 10: 03:00 AM ([place] ADVOCACY</td><td>LADY HAY</td><td>[facility] E DT [facility] 04/24/2019 Health Center</td><td>04/24/2019</td><td></td> 11:59:0 0 PM Center) EDT Outpatient<td Attender: Zena Browning 04/17/2019 D [place] ID="[id number]">[facility] 09:4 5:00 AM i ([place] VISIT</td><td>[facility] EDT - [facility] </td><td>[facility] 04/17/2019 e Health Health 11:06:53 AM r Center) Center</td><td>04/17/2019</td><td><content EDT t ID="[id number]">Diverticulit i is of Colon Without Perforation Or c Abscess</content></td> u l i t i s o f C o l o n W i t h o u t P e r f o r a t i o n O r A b s c e s s D i v e r t i c u l i t i s o f C o l o n W i t h o u t P e r f o r a t i o n O r A b s c e s s D i v e r t i c u l i t i s o f C o l o n W i t h o u t P e r f o r a t i o n O r A b s c e s s D i v e r t i c u l i t i s o f C o l o n W i t h o u t P e r f o r a t i o n O r A b s c e s s D i v e r t i c u l i t i s o f C o l o n W i t h o u t P e r f o r a t i o n O r A b s c e s s D i v e r t i c u l i t i s o f C o l o n W i t h o u t P e r f o r a t i o n O r A b s c e s s D i v e r t i c u l i t i s o f C o l o n W i t h o u t P e r f o r a t i o n O r A b s c e s s D i v e r t i c u l i t i s o f C o l o n W i t h o u t P e r f o r a t i o n O r A b s c e s s D i v e r t i c u l i t i s o f C o l o n W i t h o u t P e r f o r a t i o n O r A b s c e s s D i v e r t i c u l i t i s o f C o l o n W i t h o u t P e r f o r a t i o n O r A b s c e s s D i v e r t i c u l i t i s o f C o l o n W i t h o u t P e r f o r a t i o n O r A b s c e s s D i v e r t i c u l i t i s o f C o l o n W i t h o u t P e r f o r a t i o n O r A b s c e s s Diverticulitis of Colon Without Perforat ion Or Abscess Diverticulitis of Colon Without Perforat ion Or Abscess Diverticulitis of Colon Without Perforat ion Or Abscess Diverticulitis of Colon Without Perforat ion Or Abscess Diverticulitis of Colon Without Perforat ion Or Abscess Diverticulitis of Colon Without Perforat ion Or Abscess Diverticulitis of Colon Without Perforat ion Or Abscess Diverticulitis of Colon Without Perforat ion Or Abscess Diverticulitis of Colon Without Perforat ion Or Abscess Diverticulitis of Colon Without Perforat ion Or Abscess Diverticulitis of Colon Without Perforat ion Or Abscess Diverticulitis of Colon Without Perforat ion Or Abscess Outpatient<td Attender: [place] 03/16/2019 Dermatophytosis Gloria sinha [place] ID="[id number]">OFFICE [facility] 09:15:00 AM CorporisDermatophytosis ([place] VISIT</td><td>[facility] EDT - Ti kathy Jacobson MD</td><td>Health System 03/16/2019 CorporisDermatophytosis Health [place]</td><td>03/16/2019</td><td><content 09:5 4:11 AM T[facility] Center) ID="[id number]">Dermatophytosis E DT CorporisDermatophytosis Tinea Corporis</content></td> Tinea CorporisDermatophytosis Tinea CorporisDermatophytosis Tinea CorporisDermatophytosis Tinea CorporisDermatophytosis Tinea CorporisDermatophytosis Tinea CorporisDermatophytosis Tinea CorporisDermatophytosis Tinea CorporisDermatophytosis Tinea Corporis Dermatophytosis [employer] Dermatophytosis [employer] Dermatophytosis [employer] Dermatophytosis [employer] Dermatophytosis [employer] Dermatophytosis [employer] Dermatophytosis [employer] Dermatophytosis [employer] Dermatophytosis [employer] Dermatophytosis [employer] Dermatophytosis [employer] Dermatophytosis [employer] Medications Medication Brand Start Product Dose Route Administrative Pharmacy St at Indications Reaction Description Data Name Date Form Instructions Instructions Source(s) [place] 8% [place] 06/15/ CAPFUL suspend CNL8 G REENWAY External 8% 2019 DOSING ed ([facility] 12:00: [facility] Nam al 00 AM [facility] LamISIL LamISI 03/16/ UNIT suspend Lamisil GR EENWAY 250MG Oral L 2019 ed ([place] 250MG 12:00: Nam Oral 00 AM [place] Tablet EDT od Health Center) LamISIL LamISI 03/16/ UNIT 1 suspend Lamisil GR EENWAY 250MG Oral L 2019 ed ([place] Table[place] 250MG 12:00: Nam Oral 00 AM [place] Tablet EDT od Health Center) ciclopirox Ciclop 02/09/ APPLICAT 1 suspend Cic lopirox [place] 7.7 MG/ML irox 2019 ION UNIT ed Olamine (Mo unt Topical Olamin 12:00: Nam Cream e 00 AM [place] Ciclopirox 0.77% EDT od Healt h [facility]) 0.77% al External Cream Cream ciclopirox Ciclop 01/23/ APPLICAT 1 suspend Cic lopirox [place]ET[place] 7.7 MG/ML irox 2019 ION UNIT ed Olamine (Mo unt Topical Olamin 12:00: Nam Cream e 00 AM [place] Ciclopirox 0.77% EDT od Healt h [facility]) 0.77% al External Cream Cream Vitamin D Vitami 11/22/ UNIT 1 complet Vitamin D BEBETO (Ergocalcif n D 2019 ed (Ergocalcife ([place]) (Ergoc 12:00: rol) Nam [id number] alcife 00 AM Neigh[place] rho Oral rol) EDT od Health Capsule [id number] Center) NIT Oral Capsul e Insurance Providers Payer name Policy type / Policy ID Covered Covered alliance party's Policy Plan Coverage type alliance party ID relationship to [place] Information goodwin [facility] MEDICAID [id number] SP [id number] 01 [facility] Medicaid [id number] 1 [id number] HIP Medicaid 01 HIP - Health Individual 0 Self 0 Insurance Plan Policy of [facility] HIP - Health Individual 0 Self 0 Insurance Plan Policy of [facility] HIP - Health Individual 0 Self 0 Insurance Plan Policy of [facility] MEDICAID [id number] SP [id number] 01 HIP MEDICAID [id number] SP [id number] HIP - Health Individual 0 Self 0 Insurance Plan Policy of [facility] HIP - Health Individual 0 Self 0 Insurance Plan Policy of [facility] HIP - Health Individual 0 Self 0 Insurance Plan Policy of [place] HIP MEDICAID [id number] SP [id number] HIP - Health Individual 0 Self 0 Insurance Plan Policy of [facility] HIP - Health Individual 0 Self 0 Insurance Plan Policy of [facility] HIP - Health Individual 0 Self 0 Insurance Plan Policy of [facility] HIP - Health Individual 0 Self 0 Insurance Plan Policy of [facility] Dental [id number] S [id number] 1 [id number] 01 Emblem Medicaid Dental [id number] S [id number] 1 Healthplex [id number] 01 HIP Prime [id number] S [id number] Commerical 01 Medicaid [id number] S [id number] Regular Clinic Visit HIP Medicaid [id number] S [id number] Managed Care 01 HIP MEDICAID O [id number] HMO OP 01 HIP - Health Individual 0 Self 0 Insurance Plan Policy of [facility] HIP - Health Individual 0 Self 0 Insurance Plan Policy of [facility] HIP - Health Individual 0 Self 0 Insurance Plan Policy of [facility] HIP - Health Individual 0 Self 0 Insurance Plan Policy of [facility] HIP - Health Individual 0 Self 0 Insurance Plan Policy of [facility] HIP - Health Individual 0 Self 0 Insurance Plan Policy of [facility] HIP - Health Individual 0 Self 0 Insurance Plan Policy of [facility] HIP - Health Individual 0 Self 0 Insurance Plan Policy of [facility] HIP - Health Individual 0 Self 0 Insurance Plan Policy of [facility] HIP - Health Individual 0 Self 0 Insurance Plan Policy of [facility] HIP - Health Individual 0 Self 0 Insurance Plan Policy of [facility] HIP - Health Individual 0 Self 0 Insurance Plan Policy of [facility] Problems, Conditions, and Diagnoses Code Display Name Description Problem Type Effective Data Sour ce(s) Dates [id number] Paraumbilical Paraumbilical Problem 06/05/2019 [place] ([place] her[place] (disorder) Hernia 12:00:00 AM [facility]) [id number] Diverticular Colonic Problem 06/05/2019 [place] (Mo unt disease of colon Diverticulosis 12:00:00 AM [facility] (disorder) [facility]) [id number] Kidney stone Nephrolithiasis Problem 06/05/2019 [facility] Y ([place] (disorder) Right 12:00:00 AM [facility]) [id number] Paraumbilical Paraumbilical Problem 06/05/2019 [place] ([place] her[place] (disorder) Hernia 12:00:00 AM [facility]) [id number] Diverticular Colonic Problem 06/05/2019 [place] (Mo unt disease of colon Diverticulosis 12:00:00 AM Maria Esther non (disorder) [facility]) [id number] Kidney stone Nephrolithiasis Problem 06/05/2019 [place] ([place] (disorder) Right 12:00:00 AM [facility]) [id number] Paraumbilical Paraumbilical Problem 06/05/2019 [place] ([place] (disorder) Hernia 12:00:00 AM [facility]) [id number] Diverticular Colonic Problem 06/05/2019 [place] (Mo unt disease of colon Diverticulosis 12:00:00 AM Maria Esther non (disorder) [facility]) [id number] Kidney stone Nephrolithiasis Problem 06/05/2019 [place] ([place] (disorder) Right 12:00:00 AM [facility]) [id number] Paraumbilical Paraumbilical Problem 06/05/2019 [place] ([place] (disorder) Hernia 12:00:00 AM [facility]) [id number] Diverticular Colonic Problem 06/05/2019 [place] ([place] unt disease of colon Diverticulosis 12:00:00 AM Maria Esther non (disorder) [facility]) [id number] Kidney stone Nephrolithiasis Problem 06/05/2019 [place] ([place] (disorder) Right 12:00:00 AM [facility]) [id number] Paraumbilical Paraumbilical Problem 06/05/2019 [place] ([place] (disorder) Hernia 12:00:00 AM [facility]) [id number] Diverticular Colonic Problem 06/05/2019 [place] ([place] unt disease of colon Diverticulosis 12:00:00 AM Maria Esther non (disorder) [facility]) [id number] Kidney stone Nephrolithiasis Problem 06/05/2019 [place] ([place] (disorder) Right 12:00:00 AM [facility]) [id number] Paraumbilical Paraumbilical Problem 06/05/2019 [place] ([place] (disorder) Hernia 12:00:00 AM [facility]) [id number] Diverticular Colonic Problem 06/05/2019 [place] ([place] unt disease of colon Diverticulosis 12:00:00 AM Maria Esther non (disorder) [facility]) [id number] Kidney stone Nephrolithiasis Problem 06/05/2019 [facility] ([place] ([facility]order) Right 12:00:00 AM [facility]) [id number] Paraumbilical Paraumbilical Problem 06/05/2019 [place] ([place] her[place] (disorder) Hernia 12:00:00 AM [facility]) [id number] Diverticular Colonic Problem 06/05/2019 [place] (Mo unt disease of colon Diverticulosis 12:00:00 AM Maria Esther non (disorder) [facility]) [id number] Kidney stone Nephrolithiasis Problem 06/05/2019 [facility] Juan F ([place] (disorder) Right 12:00:00 AM [facility]) [id number] Paraumbilical Paraumbilical Problem 06/05/2019 [place] ([place] her[place] (disorder) Hernia 12:00:00 AM [facility]) [id number] Diverticular Colonic Problem 06/05/2019 [place] (Mo unt disease of colon Diverticulosis 12:00:00 AM [facility] non (disorder) [facility]) [id number] Kidney stone Nephrolithiasis Problem 06/05/2019 [facility] Juan F ([place] (disorder) Right 12:00:00 AM [facility]) Z11.59 Encounter for Screening for Diagnosis 12/18/2019 [facility] - Mo unt screening for viral disease 10:52:00 AM [facility] other viral EDT diseases K57.30 Diverticulosis of DVRTCLOS OF LG INT Diagnosis 05/21/2019 [facility] large intestine W/O PERFORATION OR 09:49:00 AM [facility] without ABSCESS W/O EST perforation or BLEEDING abscess without bleeding Surgeries/Procedures Procedure Description Date Indications Data Source(s) EKG EKG 09/14/2019 [place] 12:00:00 AM [facility]) VDRL (RPR) VDRL (RPR) 06/05/2019 [place] ([facility] 12:00:[address] [facility]) VITALS ONLY TAKEN BY VITALS ONLY TAKEN BY 05/29/2019 [place] ([facility] NSG OR SACK SEWER MACHINE NSG OR SACK SEWER MACHINE 12:00:00 AM [facility] [place]) OFFICE/OUTPATIENT 05/21/2019 NEXT[facility] (S aint VISIT, EST 12:00:00 AM [facility] EST - Center) 05/21/2019 12:00:00 AM EST TSH-THYROID TSH-THYROID 04/17/2019 [place] ([place] STIMULATING STIMULATING 12:00:00 AM [facility]) CORTISOL FREE CORTISOL FREE 04/17/2019 [place] ([place] 12:00:00 AM [facility]) Results ID Date Data Source [id number] 12/24/2019 01:15:52 AM EDT [facility] alth System Name Value Range Interpretation Description Data Sup porting Code Source(s) Document(s ) 06456-3 NEGATIVE Testing Normal (applies COVID-19.. [place] was performed to non-[facility] Syst em using Garcia ID results) NOW COVID-19, an isothermal nucleic acid amplification technology for the qualitative detection of nucleic acid from the SARS-CoV-2 viral RNA in respiratory specimens. The ID NOW COVID-19 test has been approved by the Food and Drug Administration (FDA) under an Emergency Use Authorization for use by authorized laboratories. Reference Range: NEGATIVE . ID Date Data Source [id number] 12/24/2019 01:15:52 AM EDT [facility]th System Name Value Range Interpretation Description Data Sup porting Code Source(s) Document(s ) TissueExam Results for case # Normal (applies Tissue Exam [facility] [id number] [facility]) System REPORTCLINICAL INFORMATION: Dyspepsia, GERD, colon screening. PREOPERATIVE DIAGNOSIS: Same. POSTOPERATIVE DIAGNOSIS: FINAL DIAGNOSIS: Stomach, antral and oxyntic mucosa, biopsy:Chronic active Helicobacter gastritis, moderate.Positive for Helicobacter pylori on Giemsa stain.GO/Paula GARCIA MDElectronically Signed By: GROSS DESCRIPTION: In formalin, labeled "biopsy gastric antrum", the specimen consists of 4 chun soft tissue ranging from 0.1 x 0.1 x 0.1cm to 0.3 x 0.1 x 0.1cm which are submitted in toto in one cassette.MV/stPage 1 of 1[place] [address]. ID Date Data Source [id number] 12/18/2019 11:15:00 AM EDT [facility] Name Value Range Interpretation Code Description Data Yary rce(s) Supporting Document(s ) COVID-19.. [facility] This lab was ordered by [facility] and reported by [facility]. ID Date Data Source [id number] 12/12/2019 11:01:03 AM EDT [facility] Y ([place] [id number] [facility]) Name Value Range Interpretation Description Data Source(s ) Supporting Code Document(s ) No Results No Results No Results [place] ([facility] Recorded For [place] Specified [facility]) ID Date Data Source [id number] 12/11/2019 01:17:00 PM EDT [place] ([place] nt [facility]) Name Value Range Interpretation Description Data Source(s ) Supporting Code Document(s ) SARS-CoV Not SARS-CoV-2, [place] ([facility] -2, ELIAZAR Detected ELIAZAR [facility]) Note: This test was developed and its pe rformance characteristics determinedby [facility]. This test has not been FDA cleared orapproved. This test has been authorized by FDA under an Emergenc y UseAuthorization (EUA). This test is only authorized for the duration oftime the d eclaration that circumstances exist justifying theauthorization of the emerg ency use of in vitro diagnostic tests fordetection of SARS-CoV-2 virus and/or diagnosis of COVID-19 infectionunder section 564(b)(1) of the Act, 21 U.S.C. 360bbb-3 (b)(1), unlessthe authorization is terminated or revoked sooner.When diagnostic testin g is negative, the possibility of a falsenegative result should be considere d in the context of a patient'srecent exposures and the presence of clinical s igns and symptomsconsistent with COVID- 19. An individual without symptoms of COVID-19a nd who is not shedding SARS-CoV-2 virus would expect to have anegative (not detected) result in this assay. ID Date Data Source [id number] 12/11/2019 01:17:00 PM EDT [facility] Name Value Range Interpretation Description Data Sup porting Code Source(s) Document(s ) SARS [facility] CORONAVIRUS 2 RNA This lab was ordered by [facility] and reported by [facility]. ID Date Data Source [id number] 12/11/2019 11:59:23 AM EDT [place] ([place] [id number] [facility]) Name Value Range Interpretation Description Data Source(s ) Supporting Code Document(s ) No Results No Results No Results [facility] ([facility] Recorded For [facility]) ID Date Data Source [id number] 09/21/2019 11:15:13 AM EDT [place] ([place] [id number] [facility]) Name Value Range Interpretation Description Data Source(s ) Supporting Code Document(s ) No Results No Results No Results [facility] ([facility] Recorded For [facility]) ID Date Data Source [id number] 09/14/2019 02:14:19 PM EDT [place] ([place] [id number] [facility]) Name Value Range Interpretation Description Data Source(s ) Supporting Code Document(s ) No Results No Results No Results [facility] ([facility] Recorded For [facility]) ID Date Data Source [id number] 09/05/2019 11:42:25 AM EST [place] ([place] [id number] [facility]) Name Value Range Interpretation Description Data Source(s ) Supporting Code Document(s ) No Results No Results No Results [facility] ([facility] Recorded For [facility]) ID Date Data Source [id number] 06/15/2019 01:07:31 PM EST [place] ([place] [id number] [facility]) Name Value Range Interpretation Description Data Source(s ) Supporting Code Document(s ) No Results No Results No Results [facility] ([facility] Recorded For [facility]) ID Date Data Source [id number] 06/15/2019 09:29:12 AM EST [place] ([place] [id number] [facility]) Name Value Range Interpretation Description Data Source(s ) Supporting Code Document(s ) No Results No Results No Results [facility] ([facility] Recorded For [facility]) ID Date Data Source [id number] 05/29/2019 04:00:35 PM EST [place] ([place] [id number] [facility]) Name Value Range Interpretation Description Data Source(s ) Supporting Code Document(s ) No Results No Results No Results [facility] ([facility] Recorded For [facility]) ID Date Data Source [id number] 05/28/2019 11:04:24 AM EST [place] ([place] [id number] [facility]) Name Value Range Interpretation Description Data Source(s ) Supporting Code Document(s ) No Results No Results No Results [facility] ([facility] Recorded For [facility]) ID Date Data Source [id number] 05/15/2019 10:28:33 AM EST [place] ([place] [id number] [facility]) Name Value Range Interpretation Description Data Source(s ) Supporting Code Document(s ) No Results No Results No Results [facility] ([facility] Recorded For [facility]) ID Date Data Source [id number] 04/17/2019 10:48:41 AM EDT [place] ([place] [id number] [facility]) Name Value Range Interpretation Description Data Source(s ) Supporting Code Document(s ) No Results No Results No Results [facility] ([facility] Recorded For [facility]) Procedure Social History Code Duration Value Status Description Data Source(s ) Caffeine Use 05/21/2019 completed NEXTGEN (Ed nt Details 12:00:00 AM EST [facility]) Smoking 05/21/2019 Unknown if completed Unknown if ever NEXTGEN ( [place] 12:00:00 AM EST ever smoked smoked [facility]) Vital Signs ID Date Data Source UNK Name Value Range Interpretation Code Description Data Source(s) Diastolic blood 73 mm[Hg] 0 - 999 Normal (applies to 73 mm[Hg] [facility] pressure non-numeric System results) Systolic blood 118 mm[Hg] 0 - 999 Normal (applies to 118 mm[Hg] [facility] pressure non-numeric System results) Respiratory rate 15 0 - 999 Normal (applies to 15 [facility] Health non-numeric System results) Heart rate 69 0 - 999 Normal (applies to 69 [facility] Health non-numeric System results) Oxygen saturation 100 % 0 - 999 Normal (applies to 100 % [facility] in Arterial blood non-numeric System by Pulse oximetry results) Body temperature 36.5 Sherry 0 - 99.9 Normal (applies to 36.5 Sherry [facility] Health non-numeric System results) Body temperature 97.8 [degF] 0 - 200 Normal (applies to 97.8 [degF ] [facility] Instabeat non-numeric System results) Body surface area 2 m2 2 m2 [facility] Health Derived from System formula Body mass index 24.8 kg/m2 24.8 kg/m2 [facility] Health (BMI) [Ratio] System Body weight 80.73 kg 80.73 kg [facility] alth System Body height 180.34 cm 180.34 cm [facility] alth System PhenX - pain, 0 0 [place] ([facility]) Patient here for office vist Body surface area Derived from 2.01 m2 2.01 m2 [place] ([facility]) Patient here for office vist Body mass index (BMI) 24.3 kg/m2 24.3 kg/m2 [facility] [place] ([place] [Ratio] [facility]) Patient here for office vist Body weight 177 [lb_av] 177 [lb_av] [place] ([facility]) Patient here for office vist Body height 71.5 [in_us] 71.5 [in_us] [place] ([facility]) Patient here for office vist Body temperature 98.6 [degF] 98.6 [degF] [facility] ([facility]) Patient here for office vist Heart rate 72 /min 72 /min [facility] ([facility]) Patient here for office vist Diastolic blood pressure 69 mm[Hg] 69 mm[Hg] [facility] ([facility]) Patient here for office vist Systolic blood pressure 101 mm[Hg] 101 mm[Hg] [facility] ([facility]) Patient here for office vist Body height 71.5 [in_us] 71.5 [in_us] [place] ([facility]) 49 year old m had ekg done. Body mass index (BMI) 24.5 kg/m2 24.5 kg/m2 [facility] ([place] [[facility]] [facility]) Patient here for office visit Body weight 178 [lb_av] 178 [lb_av] [place] ([facility]) Patient here for office visit Body height 71.5 [in_us] 71.5 [in_us] [place] ([facility]) Patient here for office visit Body temperature 98.6 [degF] 98.6 [degF] [facility] ([facility]) Patient here for office visit Heart rate 88 /min 88 /min [place] ([facility]) Patient here for office visit Diastolic blood pressure 80 mm[Hg] 80 mm[Hg] [place] ([facility]) Patient here for office visit Systolic blood pressure 117 mm[Hg] 117 mm[Hg] [facility] ([facility]) Patient here for office visit PhenX - pain, abdominal - type and 0 0 [place] ([facility]) Patient here for office visit Body surface area Derived from 2.02 m2 2.02 m2 [place] ([facility]) Patient here for office visit PhenX - pain, abdominal - type and 0 0 [place] ([facility]) Patient here for office visit Body surface area Derived from 2.01 m2 2.01 m2 [place] ([facility]) Patient here for office visit Body mass index (BMI) 24.3 kg/m2 24.3 kg/m2 [facility] ([place] [[facility]] [facility]) Patient here for office visit Body weight 177 [lb_av] 177 [lb_av] [place] ([facility]) Patient here for office visit Body height 71.5 [in_us] 71.5 [in_us] [place] ([facility]) Patient here for office visit Body temperature 98.2 [degF] 98.2 [degF] [place] ([facility]) Patient here for office visit Respiratory rate 19 /min 19 /min [place] ([facility]) Patient here for office visit Heart rate 76 /min 76 /min [place] ([facility]) Patient here for office visit Diastolic blood pressure 78 mm[Hg] 78 mm[Hg] [place] ([facility]) Patient here for office visit Systolic blood pressure 125 mm[Hg] 125 mm[Hg] [facility] ([facility]) Patient here for office visit PhenX - pain, abdominal - type and 0 0 [place] ([facility]) 48 year old m here for follow up. Body surface area Derived from 2.02 m2 2.02 m2 [place] ([facility]) 48 year old m here for follow up. Body mass index (BMI) 24.6 kg/m2 24.6 kg/m2 [facility] ([place] [[facility]] [facility]) 48 year old m here for follow up. Body weight 179 [lb_av] 179 [lb_av] [place] ([facility]) 48 year old m here for follow up. Body height 71.5 [in_us] 71.5 [in_us] [place] ([facility]) 48 year old m here for follow up. Body temperature 98.2 [degF] 98.2 [degF] [place] ([facility]) 48 year old m here for follow up. Heart rate 71 /min 71 /min [place] ([facility]) 48 year old m here for follow up. Diastolic blood pressure 74 mm[Hg] 74 mm[Hg] [place] ([facility]) 48 year old m here for follow up. Systolic blood pressure 120 mm[Hg] 120 mm[Hg] [facility] ([facility]) 48 year old m here for follow up. Body surface area Derived from 2.04 m2 2.04 m2 [place] ([facility]) Pt. stated he is here for a office visit . Body mass index (BMI) 25.0 kg/m2 25.0 kg/m2 [facility] ([place] [[facility]] [facility]) Pt. stated he is here for a office visit . Body weight 182 [lb_av] 182 [lb_av] [place] ([facility]) Pt. stated he is here for a office visit . Body height 71.5 [in_us] 71.5 [in_us] [place] ([facility]) Pt. stated he is here for a office visit . Body temperature 98.3 [degF] 98.3 [degF] [facility] ([facility]) Pt. stated he is here for a office visit . Respiratory rate 18 /min 18 /min [place] ([facility]) Pt. stated he is here for a office visit . Heart rate 82 /min 82 /min [place] ([facility]) Pt. stated he is here for a office visit . Diastolic blood pressure 71 mm[Hg] 71 mm[Hg] [place] ([facility]) Pt. stated he is here for a office visit . Systolic blood pressure 109 mm[Hg] 109 mm[Hg] [facility]) Pt. stated he is here for a office visit . PhenX - pain, abdominal - type and 0 0 [place] ([facility]) pt. stated he is he for a office visit. Body surface area Derived from 2.02 m2 2.02 m2 [place] ([facility]) pt. stated he is he for a office visit. Body mass index (BMI) 24.5 kg/m2 24.5 kg/m2 [facility] ([place] [[facility]] [facility]) pt. stated he is he for a office visit. Body weight 178 [lb_av] 178 [lb_av] [place] ([facility]) pt. stated he is he for a office visit. Body height 71.5 [in_us] 71.5 [in_us] [place] ([facility]) pt. stated he is he for a office visit. Body temperature 97.9 [degF] 97.9 [degF] ABRAM AY ([facility]) pt. stated he is he for a office visit. Respiratory rate 18 /min 18 /min [place] ([facility]) pt. stated he is he for a office visit. Heart rate 72 /min 72 /min [place] ([facility]) pt. stated he is he for a office visit. Diastolic blood pressure 68 mm[Hg] 68 mm[Hg] [facility] ([facility]) pt. stated he is he for a office visit. Systolic blood pressure 110 mm[Hg] 110 mm[Hg] G OSMANY ([facility]) pt. stated he is he for a office visit. Body surface area 2.01 m2 2.01 m2 [facility] ([facility] Der[facility] from [facility]) Body mass index (BMI) 26.00 kg/m2 Overweight 26.00 kg/m2 [facility] ) Respiratory rate 18 /min 18 /min [facility] ([facility] ) Body temperature 36.72 Sherry 36.72 Sherry [facility] ([facility] ) Heart rate 69 /min 69 /min [facility] ([facility] ) Diastolic blood pressure 74 mm[Hg] 74 mm[Hg] [facility] ([facility] ) Systolic blood pressure 114 mm[Hg] 114 mm[Hg] [facility] ) Body weight 82.191 kg 82.191 kg [facility] ([facility] ) Body height 177.80 cm 177.80 cm [facility] ([facility] ) PhenX - pain, abdominal 1 1 [facility] ([place] - type and intensity [facility]) Pt stated he has discomfort on his lefts jose maria.\\and is here for a office visit Body surface area Derived from 2.02 m2 2.02 m2 [place] ([facility]) Pt stated he has discomfort on his lefts jose maria.\\and is here for a office visit Body mass index (BMI) 24.6 kg/m2 24.6 kg/m2 [facility] ([place] [[facility]] [facility]) Pt stated he has discomfort on his lefts jose maria.\\and is here for a office visit Body weight 179 [lb_av] 179 [lb_av] [place] ([facility]) Pt stated he has discomfort on his lefts jose maria.\\and is here for a office visit Body height 71.5 [in_us] 71.5 [in_us] [facility] ([facility]) Pt stated he has discomfort on his lefts jose maria.\\and is here for a office visit Body temperature 97.7 [degF] 97.7 [degF] [place] ([facility]) Pt stated he has discomfort on his lefts jose maria.\\and is here for a office visit Respiratory rate 18 /min 18 /min [place] ([facility]) Pt stated he has discomfort on his lefts jose maria.\\and is here for a office visit Heart rate 86 /min 86 /min [place] ([facility]) Pt stated he has discomfort on his lefts jose maria.\\and is here for a office visit Diastolic blood pressure 68 mm[Hg] 68 mm[Hg] [place] ([facility]) Pt stated he has discomfort on his lefts jose maria.\\and is here for a office visit Systolic blood pressure 102 mm[Hg] 102 mm[Hg] G [place] ([facility]) Pt stated he has discomfort on his lefts jose maria.\\and is here for a office visit PhenX - pain, abdominal - type and 0 0 [place] ([facility]) 48 year old m here for follow up. Body surface area Derived from 2.02 m2 2.02 m2 [place] ([facility]) 48 year old m here for follow up. Body mass index (BMI) 24.6 kg/m2 24.6 kg/m2 [facility] ([place] [Ratio] [facility]) 48 year old m here for follow up. Body weight 179 [lb_av] 179 [lb_av] [place] ([facility]) 48 year old m here for follow up. Body height 71.5 [in_us] 71.5 [in_us] [place] ([facility]) 48 year old m here for follow up. Body temperature 98.2 [degF] 98.2 [degF] ANUM PETERSON ([facility]) 48 year old m here for follow up. Heart rate 68 /min 68 /min [facility] ([facility]) 48 year old m here for follow up. Diastolic blood pressure 76 mm[Hg] 76 mm[Hg] [facility] ([facility]) 48 year old m here for follow up. Systolic blood pressure 114 mm[Hg] 114 mm[Hg] Duane CERON ([facility]) 48 year old m here for follow up. Patient Treatment Plan of Care Planned Activity Planned Date Details Description Data Source (s) [place] 8% External 06/15/2019 12:00:00 [facility] ([place] [facility]) LamISIL 250MG Oral 03/16/2019 12:00:00 [place] [facility] ([place] Tablet [facility]) LamISIL 250MG Oral 03/16/2019 12:00:00 [place] ([place] Tablet [facility]) ciclopirox 7.7 MG/ML 02/09/2019 12:00:00 [place] ([place] Topical Cream [facility]) ciclopirox 7.7 MG/ML 01/23/2019 12:00:00 [place] ([place] Topical Cream [facility]) Vitamin D 11/22/2018 12:00:00 [place] ([place] (Ergocalciferol) AM [facility] [id number] Oral Capsule Lila lambert)
--- NOTE | 2020-04-16 09:57 | PDOC ---
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 Patient denies chest pain, shortness of breath, throat closing sensation, abdominal pain, nausea, vomiting, rash or any other complaint. Patient did not take any medication prior to presenting to ED. ROS: as above PE: GENERAL: well-appearing, NAD, speaking full sentences HEAD: NCAT EYES: Pupils equal, round and reactive to light, sclera anicteric, conjunctiva clear ENT: pharynx: no erythema, no exudate, uvula midline NECK: supple CHEST: nontender RESP: clear, no w/r/r CARDIO: rrr, no m/g/r ABD: +BS, soft, nontender, non distended BACK: no midline spinal ttp, no CVAT EXTREMITIES: Normal range of motion, no edema NEUROLOGICAL: Normal speech, normal gait SKIN: No rash noted, warm, Dry Past History - Medical History Allergies/Adverse Reactions: Allergies Allergy/AdvReac Type Severity Reaction Status Date / Time No Known Allergies Allergy Verified 01/19/20 04:08 Home Medications: Ambulatory Orders Meclizine HCl [Antivert -] 25 mg PO TID PRN #21 tablet 01/19/20 Anemia: No Asthma: No Cancer: No Cardiac Disorders: No CVA: No COPD: No CHF: No Dementia: No Diabetes: No GI Disorders: No Disorders: No HTN: No Hypercholesterolemia: No Kidney Stones: Yes Liver Disease: No Seizures: No Thyroid Disease: No - Surgical History Orthopedic Surgery: Yes (RIGHT SHOULDER SX) - Psycho-Social/Smoking History Smoking Status: No Smoking History: Never smoked Years of Tobacco Use: 0 Have you smoked in the past 12 months: No Information on smoking cessation initiated: No - Substance Abuse Hx (Audit-C & DAST Scrn) How often the patient has a drink containing alcohol: Never Score: In Men: 4 or > Positive; In Women: 3 or > Positive: 0 Screen Result (Pos requires Nsg. Audit-10AR): Negative In the last yr the pt used illegal drug/Rx for NonMed reason: No Score: Yes response is considered Positive: 0 Screen Result (Positive result requires Nsg. 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 Patient denies chest pain, shortness of breath, throat closing sensation, abdominal pain, nausea, vomiting, rash or any other complaint. Patient did not take any medication prior to presenting to ED. VSS ecg: HR 70, nsr, no st or tw changes Patient offered Benadryl p.o. in the ED however he declines at this time Agrees to purchase Benadryl [id number] and take as needed Advised to follow-up with PMD within 2 to 3 days Return precautions discussed Avoid ingesting black sesame seeds Follow-up with an foreign broadcast specialist within 1 to 2-weeks 04/16/20 10:04 Discharge - Discharge Information Problems reviewed: Yes Clinical Impression/Diagnosis: Palpitations Condition: Stable Disposition: HOME - Admission No - Follow up/Referral Referrals: Micheal Wing [Primary Care Provider] - - Patient Discharge Instructions Additional Instructions: Return to ED if shortness of breath, lip swelling, throat closing sensation, difficulty breathing or any concerning symptom Take Benadryl 25 mg 1 tablet every 6 hours as needed Follow-up with your doctor within 2 to 3 days - Post Discharge Activity
--- NOTE | 2020-04-16 10:33 | EKG ---
Test Reason : Blood Pressure : / mmHG Vent. Rate : 070 BPM Atrial Rate : 070 BPM P-R Int : 136 ms QRS Dur : 084 ms QT Int : 348 ms P-R-T Axes : 058 052 061 degrees QTc Int : 375 ms NORMAL SINUS RHYTHM EARLY REPOLARIZATION NORMAL ECG WHEN COMPARED WITH ECG OF 19-JAN-2020 05:45, NO SIGNIFICANT CHANGE WAS FOUND Confirmed by MD Fisher Daniel ([id number]) on 04/16/2020 10:32:48 AM Referred By: Confirmed By:Frankie Fisher MD
== END 2020-04-16 11:10 | disposition home or self-care (01) ==
LOC: JERFT 08:47 → JER 08:47 → JERFT 11:10
DX: R00.2 Palpitations (principal)
CPT/HCPCS: 93005; 93010; 99284-25

== ENCOUNTER 2021-04-05 07:37 | Emergency (ER) | payer OTHER ==
[2021-04-05 07:51] VITALS: TEMP 98; BMI 23.1
[2021-04-05] MEDS ORDERED: ONDANSETRON 4 MG/2 ML VIAL IVPUSH ONE (08:01)
[2021-04-05] MEDS ORDERED: morphine SULFATE 4 MG/ML VIAL IVPUSH ONE (08:02)
[2021-04-05] MEDS ORDERED: morphine SULFATE 4 MG/ML VIAL ONE (08:05)
[2021-04-05] MEDS ORDERED: SODIUM CHLORIDE 0.9% 500 ML INFUS.BAG IV ONE (08:06)
[2021-04-05] MEDS ORDERED: ONDANSETRON 4 MG/2 ML VIAL ONE (08:06)
[2021-04-05 09:44] LABS: BASO % 0.3 % (0-2.0); LYMPH % 13.2 % (8-40)
[2021-04-05 09:54] LABS: EOS % 0.8 % (0-4.5); HEMATOCRIT 44.4 % (35.4-49); HEMOGLOBIN 14.7 GM/dL (11.7-16.9); MCH 29.8 pg (25.7-33.7); MCHC 33.2 g/dl (32.0-35.9); MEAN CELL VOLUME 89.8 fl (80-96); MEAN PLT VOLUME 10.4 fl (7.5-11.1); MONO % 3.7 % (3.8-10.2); PLATELET COUNT 217 10^3/uL (134-434); RBC 4.94 M/mm3 (4.00-5.60); RDW 12.6 % (11.9-15.9); WHITE BLOOD COUNT 10.8 K/mm3 (4.0-10.0)
[2021-04-05 10:02] LABS: CREATININE 1.3 mg/dL (0.55-1.3)
[2021-04-05 10:03] LABS: SGOT/AST 21 U/L (15-37); SGPT/ALT 25 U/L (13-61)
[2021-04-05 10:04] LABS: BILIRUBIN,TOTAL 0.7 mg/dL (0.2-1); TOT PROT 8.6 g/dl (6.4-8.2)
[2021-04-05 10:06] LABS: ALK PHOS 81 U/L (45-117)
[2021-04-05 10:20] LABS: EPI CELLS 5 /uL (0-25.1); HYALINE CASTS 3 /uL (0-3.1); PH,URINE 5.5 (5.0-8.0); URINE APPEARANCE CLEAR; URINE BACTERIA 21 /uL (0-1359); URINE BILIRUBIN NEGATIVE (NEGATIVE); URINE COLOR YELLOW; URINE GLUCOSE (UA) NEGATIVE (NEGATIVE); URINE KETONE 1+ (NEGATIVE); URINE LEUK ESTERASE NEGATIVE (NEGATIVE); URINE NITRITE NEGATIVE (NEGATIVE); URINE PROTEIN TRACE (NEGATIVE); URINE RBC 792 /uL (0-23.9); URINE UROBILINOGEN 0.2 mg/dL (0.2-1.0); URINE WBC 16 /uL (0-25.8)
[2021-04-05 11:33] LABS: ALBUMIN 4.6 g/dl (3.4-5.0); BLOOD UREA NITROGEN 10.6 mg/dL (7-18); CALCIUM 9.9 mg/dL (8.5-10.1); CHLORIDE 102 mmol/L (98-107); CO2 22 mmol/L (21-32); GLUCOSE,RANDOM 139 mg/dL (74-106); SODIUM 137 mmol/L (136-145)
[2021-04-05 12:21] VITALS: BP 112/72; PULSE 67
== END 2021-04-05 12:24 | disposition home or self-care (01) ==
LOC: JER 07:37
PROC: 3E033GC Introduction of Other Therapeutic Substance into Peripheral Vein, Percutaneous Approach (ICD-10-PCS; principal; 2021-04-05)
DX: N20.0 Calculus of kidney (principal); N23 Unspecified renal colic
CPT/HCPCS: 36415; 74176-TC; 80053; 81003; 85025; 87086; 96374; 96375; 99285-25

== ENCOUNTER 2023-08-08 07:06 | Emergency (ER) | payer OTHER ==
[2023-08-08 07:23] VITALS: RESP 18; BMI 19.5
[2023-08-08] MEDS ORDERED: LIDOCAINE 4% PATCH TP ONE (08:29)
[2023-08-08] MEDS ORDERED: ACETAMINOPHEN 325 MG TABLET (FP) ONE (08:29)
[2023-08-08] MEDS ORDERED: KETOROLAC TROMETHAMINE 30 MG/1 ML VIAL ONE (08:30)
[2023-08-08] MEDS: KETOROLAC TROMETHAMINE 30 MG/1 ML VIAL IM ONE (08:35)
[2023-08-08] MEDS: ACETAMINOPHEN 325 MG TABLET (FP) PO ONE (08:35)
[2023-08-08] MEDS: LIDOCAINE 4% PATCH TP ONE (08:40)
[2023-08-08 09:54] VITALS: BP 109/66; PULSE 63; TEMP 98.6
[2023-08-08] MEDS ORDERED: LIDOCAINE PATCH REMOVAL MC ONE (22:00)
== END 2023-08-08 10:00 | disposition home or self-care (01) ==
LOC: JER 07:06
PROC: 3E0233Z Introduction of Anti-inflammatory into Muscle, Percutaneous Approach (ICD-10-PCS; principal; 2023-08-08)
DX: M54.50 Low back pain, unspecified (principal); X50.0XXA Overexertion from strenuous movement or load, initial encounter; Y93.89 Activity, other specified; Y92.009 Unspecified place in unspecified non-institutional (private) residence as the place of occurrence of the external cause
CPT/HCPCS: 96372; 99284-25